=== PATIENT | male | born 1970 | race Caucasian/White ===

== ENCOUNTER 2018-06-15 06:24 | Day surgery (SDC) | payer OTHER ==
--- NOTE | 2018-06-08 11:54 | RAD REPORT ---
EXAM DESCRIPTION: RAD - Chest Pa And Lat (2 Views) - 06/08/2018 11:46 am CLINICAL HISTORY: preop Chest pain. COMPARISON: CHEST PA AND LAT 2 VIEW dated 09/27/2012; CHEST PA AND LAT 2 VIEW dated 02/24/2010; CHEST SINGLE VIEW dated 02/24/2010; CHEST PA AND LAT 2 VIEW dated 09/08/1999 FINDINGS: The lungs are emphysematous but clear. The heart is normal in size. No displaced fractures . IMPRESSION: Mild COPD.
[2018-06-08 12:17] LABS: Absolute Lymphocytes (CBC) 2.7 K/uL (0.7-4.9); Absolute Monocytes 0.7 K/uL (0.1-1.3); Absolute Neutrophil 4.3 K/uL (1.8-8.0); Basophils % 0.5 % (0-1.3); Eosinophils % 2.9 % (0-4.4); Hematocrit 46.2 % (39.6-49.0); Lymphocytes % 33.8 % (15.3-44.8); MPV 8.1 fL (7.6-11.3); Monocytes % 8.8 % (3.3-12.3); RBC Red Blood Cell Count 4.62 M/uL (4.33-5.43)
[2018-06-08 12:19] LABS: BUN Blood Urea Nitrogen 12 mg/dL (7-18); Bicarbonate 32 mmol/L (21-32); Glucose Level 88 mg/dL (74-106); Potassium 4.1 mmol/L (3.5-5.1); Sodium Level 138 mmol/L (136-145)
--- NOTE | 2018-06-14 19:58 | PREOPHP ---
Date of Admission: 06/08/2018 History Of Present Illness: This patient presented to my office with a chief complaint of a painful big toe present on the left foot. Pain is sore and throbbing, moderate in severity, worse with activ ity, improved with rest. The patient has had the calluses trimmed, change of shoe gear, all to no av ail, and requests surgical management. Past Medical History: Unremarkable. Current Medications: Citalopram 40 mg, gabapentin 300 mg and hydrocodone 10 mg. Past Surgical History: Includes herniated disk in the neck, a stomach surgery for scar tissue buildu p as a child. Allergies: NKDA. Social History: The patient is a regular smoker, pack a day, and social beer drinker. The patient d enies recreational drug use. Physical Examination: General: The patient is healthy, well developed, well nourished, well oriented x3. Vascular: Evaluation reveals dorsalis pedis and posterior tibial pulses to be 4/4 bilaterally. Capi llary refill time is 1 second. Temperature gradient is within normal limits. There is no varicositi es or signs of DVT. Musculoskeletal: Evaluation reveals flexible cavus foot type bilaterally with the normal subtalar norman int and normal forefoot position bilaterally. Digits of both feet are noted to be contracted at the PIPJ on the fifth toe with adductovarus deformity. Muscle testing, knee and ankle assessment are all within normal limits. There is no tenderness on the plantar fascia. No soft tissue masses are palp ated. Skin: Evaluation reveals no rash, ulcer, tumor or contracture. There is a hard callus to the latera l nail fold of the fifth toe with increased callus on the medial IPJ of the hallux on the right foot. Neurologic: Evaluation reveals deep tendon reflexes to be 5/5 for the patella and Achilles. Vibrato ry and sharp dull sensation are within normal limits. Paresthesias are, however, present on both fee t. X-ray evaluation of the left foot reveals an adductovarus deformity of the fifth toe with a fused DIP J and widened phalanges of the fifth toe. Diagnoses: Hammertoe deformity, fifth digit, left foot, and osteophyte formation, fifth toe, left fo ot. Plan: Recommended surgeries for an arthroplasty with middle hemiphalangectomy of the fifth toe, left foot. The patient understands risks, benefits, alternatives of the above-mentioned procedure includ ing, but not limited to the risk of infection, pain, numbness, swelling, stiffness, nonhealing of ski n or bone, recurrence of the deformity requiring further surgery. The patient requests to proceed wi th the procedure due to the failure of conservative measures. The patient was counseled on the benef its of smoking cessation and bone healing and skin healing. Preoperative labs have been performed. Medical H and P will be completed by Anesthesia. The patient is scheduled for surgery at [facility] on June 15, 2018. Medical H and P will be completed by Anesthesia. RYAN Voice ID: [id number]
[2018-06-15] MEDS ORDERED: Ringers Lactate 1,000 ML IV ONE (06:40)
[2018-06-15] MEDS ORDERED: LIDOCAINE 1% MPF 5 ML VIAL ONE ×2 (06:58→07:26)
[2018-06-15] MEDS ORDERED: DEXAMETHASONE 4 MG/ML VIAL ONE (07:21)
[2018-06-15] MEDS ORDERED: LIDOCAINE 1% MPF 30 ML VIAL ONE (07:22)
[2018-06-15] MEDS ORDERED: BUPIVACAINE 0.5% PF 10 ML VIAL ONE (07:22)
[2018-06-15] MEDS ORDERED: MIDAZOLAM HCL 2 MG/2 ML INJ ONE (07:25)
[2018-06-15] MEDS ORDERED: PROPOFOL 200 MG/20 ML VIAL IV ONE (07:25)
[2018-06-15] MEDS ORDERED: FENTANYL CITR 100 MCG/2 ML ONE (07:25)
[2018-06-15] MEDS ORDERED: KETOROLAC 30 MG/ML INJ ONE (08:12)
[2018-06-15] MEDS ORDERED: ONDANSETRON 4 MG/2 ML VIAL ONE (08:25)
--- NOTE | 2018-06-15 10:33 | RAD REPORT ---
EXAM DESCRIPTION: RAD - Foot Left 2 View - 06/15/2018 9:20 am CLINICAL HISTORY: Postop foot examination metatarsal head resection COMPARISON: None. FINDINGS: AP and lateral views of the left foot were obtained. A very small plantar spur is present. No acute fracture changes identified. No bone destructive changes are seen. The fifth proximal phala nx head has been resected. No suspicious or unexpected finding. Middle and distal phalanges of the fi fth toe are fused as a normal variant. No destructive bone process. No air or foreign body. IMPRESSION: Postsurgical changes are present involving fifth proximal phalanx. No suspicious or unex pected finding.
--- NOTE | 2018-06-15 19:32 | OP ---
Date of Procedure: 06/15/2018 Surgeon: Hector Mccall DPM Preoperative Diagnosis: Hammertoe deformity, fifth digit, left foot. Postoperative Diagnosis: Hammertoe deformity, fifth digit, left foot. Procedure: Arthroplasty with middle hemiphalangectomy, fifth toe, left foot. Anesthesia: Via local infiltration. Procedure In Detail: The patient was brought into the operating room, placed on the operating table in supine position. Once adequate IV sedation was obtained, the patient was injected with a total of 3 cc of 0.5% Marcaine plain. The patient was prepped and draped in the usual sterile manner and the left extremity was elevated 60 degrees. An Esmarch bandage was applied. Pneumatic ankle tourniquet was inflated to 150 mmHg and the Esmarch was removed. Attention was then directed to the fifth toe where a dorsal linear incision was made overlying the pr oximal phalanx at the PIPJ. The incision was angled distal laterally just to the lateral side of the nail plate. The incision was deepened via sharp and blunt dissection. All neurologic structures we re avoided. All bleeders were clamped and bovied. The extensor digitorum longus tendon was transver sely incised at the level of the PIPJ and reflected proximally. The head of the proximal phalanx was freed utilizing a 15 blade from its medial and lateral collateral ligaments. The head of the fifth proximal phalanx was then resected utilizing a double-action bone cutter. All rough edges were garcía hed utilizing a rasp. The middle phalanx was then approached, which was excessively wide and utilizi ng a 15 blade the lateral half of the middle phalanx was then freed from its soft tissue attachments and removed with a double-action bone cutter. This was carefully removed from the soft tissue. The incision was then freed distally where there was a skin corn present. There was no bony process unde rneath this. However, it was extremely fibrotic and the distal growth was ellipsed at the end of the incision and removed approximately 3 mm in length. All layers were flushed with copious amounts of sterile saline. Extensor digitorum longus tendon was reattached utilizing 0 Vicryl suture. The skin was then reapproximated utilizing 4-0 Prolene horizontal in simple suturing. The toe was seen to be in an excellent rectus alignment. Pneumatic ankle tourniquet was deflated before any bandaging was put on and capillary return was seen to be present in all 5 toes including the fifth toe. This was v isualized by the OR staff including scrub nurse and sock turner. The toe was then dressed with Adapt[employer], dry sterile gauze, dry sterile Maira, and Coban. The patient was sent to recovery room in satisfa ctory condition. DONOVAN/CHARY Voice ID: [id number] Report ID: [id number]
--- NOTE | 2018-06-15 19:35 | DS ---
Date of Discharge: 06/15/2018 Date Of Surgery: 06/15/2018. Surgeon: Hector Mccall DPM. Preoperative Diagnosis: Hammertoe deformity, fifth digit, left foot. Postoperative Diagnosis: Hammertoe deformity, fifth digit, left foot. Procedure: Arthroplasty with middle hemiphalangectomy, fifth digit, left foot. Hospital Course: The patient tolerated the procedure and anesthesia well and was in recovery in sati sfactory condition. The patient will be discharged to home and may ambulate in a postop shoe [facility] and has been given written postop instructions as well as emergency p debi number. The patient will be seen in my office in 1 week for followup care. The patient has harsh n medication. DONOVAN/CHARY Voice ID: [id number] Report ID: [id number]
== END 2018-06-15 09:45 | disposition home or self-care (01) ==
LOC: OR 06:24
PROVIDERS: ATTEND Podiatrist
PROC: 0QBR0ZZ Excision of Left Toe Phalanx, Open Approach (ICD-10-PCS; principal; 2018-06-15 07:30)
DX: M20.42 Other hammer toe(s) (acquired), left foot (principal); I10 Essential (primary) hypertension; K21.9 Gastro-esophageal reflux disease without esophagitis; F41.9 Anxiety disorder, unspecified; F17.210 Nicotine dependence, cigarettes, uncomplicated; Z79.899 Other long term (current) drug therapy
CPT/HCPCS: 36415; 71046; 80048; 85025; J2250; J2405; J2704; J3010

== ENCOUNTER 2018-11-04 11:40 | Emergency (ER) | payer OTHER ==
[2018-11-04] MEDS ORDERED: LIDOCAINE 1% MPF 5 ML VIAL ONE (12:40)
--- NOTE | 2018-11-04 12:56 | ER ---
Nurse's Notes [facility] Name: Carson Slaughter Age: 48 yrs Sex: Male : 1970 Arrival Date: 11/04/2018 Time: 11:41 Bed Treatment Private MD: Anjum Wheeler Diagnosis: Puncture wound of abdominal wall with foreign body without penetration into peritoneal cavity Presentation: 11/04 11:46 Presenting complaint: Patient states: "I went fishing caught a fish and trying to take aj1 it off the hook it flipped n me and I got the fin stuck un my stomach and I couldn't pull it out". Transition of care: patient was not received from another setting of care. Onset of symptoms was November 04, 2018. Risk Assessment: Do you want to hurt yourself or someone else? Patient reports no desire to harm self or others. Initial Sepsis Screen: Does the patient meet any 2 criteria? No. Patient's initial sepsis screen is negative. Does the patient have a suspected source of infection? No. Patient's initial sepsis screen is negative. Care prior to arrival: None. 11:46 Method Of Arrival: Ambulatory aj1 11:46 Acuity: STACY 3 aj1 Triage Assessment: 11:48 General: Appears in no apparent distress. uncomfortable, Behavior is calm, cooperative, aj1 appropriate for age. Pain: Complains of pain in abdomen Pain currently is 7 out of 10 on a pain scale. Neuro: Level of Consciousness is awake, alert, obeys commands. Cardiovascular: Patient's skin is warm and dry. Respiratory: Airway is patent Respiratory effort is even, unlabored, Respiratory pattern is regular, symmetrical. Historical: - Allergies: 11:48 No Known Allergies; aj1 - Home Meds: 11:48 gabapentin 300 mg oral cap 1 cap 3 times per day [Active]; Hydrocodone-Acetaminophen aj1 Oral as needed [Active]; - PMHx: 11:48 neuropathy; aj1 - Immunization history:: Last tetanus immunization: unknown, Flu vaccine is not up to date. - Social history:: Smoking status: Patient uses tobacco products, smokes one pack cigarettes per day. - Ebola Screening: : Patient denies travel to an Ebola-affected area in the 21 days before illness onset. Screenin:31 Abuse screen: Denies threats or abuse. Denies injuries from another. Nutritional hb screening: No deficits noted. Tuberculosis screening: No symptoms or risk factors identified. Fall Risk None identified. Assessment: 12:31 General: Appears in no apparent distress. Behavior is calm, cooperative. Pain: Pain hb currently is 7 out of 10 on a pain scale. Neuro: Level of Consciousness is awake, alert, obeys commands, Oriented to person, place, time, situation. Cardiovascular: Capillary refill < 3 seconds Patient's skin is warm and dry. Respiratory: Airway is patent Respiratory effort is even, unlabored, Respiratory pattern is regular, symmetrical. GI: No signs and/or symptoms were reported involving the gastrointestinal system. : No signs and/or symptoms were reported regarding the genitourinary system. EENT: No signs and/or symptoms were reported regarding the EENT system. Derm: Skin is pink, warm \\T\\ dry. Musculoskeletal: No signs and/or symptoms reported regarding the musculoskeletal system. Vital Signs: 11:48 BP 119 / 82; Pulse 69; Resp 18; Temp 97.0; Pulse Ox 98% on R/A; Weight 113.4 kg (R); aj1 Height 6 ft. 5 in. (195.58 cm) (R); Pain 7/10; 11:48 Body Mass Index 29.65 (113.40 kg, 195.58 cm) aj1 ED Course: 11:41 Patient arrived in ED. mr 11:42 Anjum Wheeler MD is Private Physician. mr 11:43 Cortney Sinha FNP-C is [facility]. kb 11:43 Chalino Galan MD is Attending Physician. kb 11:48 Triage completed. aj1 11:48 Arm band placed on Patient placed in waiting room, Patient notified of wait time. aj1 12:31 Patient has correct armband on for positive identification. Call light in reach. hb 12:31 Patient did not have IV access during this emergency room visit. hb 12:50 Cami Tapia, RN is Primary Nurse. hb 12:52 Abdomen 1 View (KUB) XRAY In Process Unspecified. EDMS 13:13 No provider procedures requiring assistance completed. hb Administered Medications: 12:31 Drug: Lidocaine (1 %) 1 vials {Note: administered by SANTOS Nugent .} Volume: 5 ml; Route: hb Infiltration; 12:51 Follow up: Response: No adverse reaction hb 12:50 Drug: Doxycycline 100 mg Route: PO; hb 13:13 Follow up: Response: Medication administered at discharge. hb 12:58 Drug: Tetanus-Diphtheria Toxoid Adult 0.5 ml {Stained Glass Installer: [employer]. Exp: hb 07/08/2020. Lot #: [id number]. } Route: IM; Site: left deltoid; 13:13 Follow up: Response: No adverse reaction hb Outcome: 12:56 Discharge ordered by . angelita 13:13 Discharged to home ambulatory, with significant other. hb 13:13 Condition: stable 13:13 Discharge instructions given to patient, Instructed on discharge instructions, follow up and referral plans. medication usage, Demonstrated understanding of instructions, follow-up care, medications, wound care, Prescriptions given X 1. 13:15 Patient left the ED. hb Signatures: Dispatcher [employer] EDMS Cortney Sinha, COOK RELIEF-C COOK RELIEF-Meli Amaya RN RN aj Kyung Caldwell Heather, RN RN hb Corrections: (The following items were deleted from the chart) 11:50 11:48 Arm band placed on Patient placed in an exam room, aj aj
--- NOTE | 2018-11-04 12:57 | EDPHYS ---
Physician Documentation [facility] Name: Carson Slaughter Age: 48 yrs Sex: Male : 1970 Arrival Date: 11/04/2018 Time: 11:41 Bed Treatment Private MD: Anjum Wheeler ED Physician Chalino Galan HPI: 11/04 13:10 This 48 yrs old Male presents to ER via Ambulatory with complaints of Fish kb fin in stomach. 13:10 The patient or guardian reports the patient has a suspected foreign body, fishfin. The kb reported likely foreign body is fishfin. Onset: The symptoms/episode began/occurred just prior to arrival. Current symptoms: foreign body sensation, pain. Treatment Prior to Arrival: tried to remove, but couldn't get out. The patient has not experienced similar symptoms in the past. The patient has not recently seen a physician. Pt caught a hardhead and when he was trying to get the hook out it flipped and a fin stuck in abdomen. Historical: - Allergies: 11:48 No Known Allergies; aj1 - Home Meds: 11:48 gabapentin 300 mg oral cap 1 cap 3 times per day [Active]; Hydrocodone-Acetaminophen aj1 Oral as needed [Active]; - PMHx: 11:48 neuropathy; aj1 - Immunization history:: Last tetanus immunization: unknown, Flu vaccine is not up to date. - Social history:: Smoking status: Patient uses tobacco products, smokes one pack cigarettes per day. - Ebola Screening: : Patient denies travel to an Ebola-affected area in the 21 days before illness onset. ROS: 13:08 Constitutional: Negative for fever, chills, and weight loss, Cardiovascular: Negative kb for chest pain, palpitations, and edema, Respiratory: Negative for shortness of breath, cough, wheezing, and pleuritic chest pain, Abdomen/GI: Negative for abdominal pain, nausea, vomiting, diarrhea, and constipation, MS/Extremity: Negative for injury and deformity, Neuro: Negative for headache, weakness, numbness, tingling, and seizure. 13:08 Skin: Positive for of the abdomen, fishfin. Exam: 13:08 Constitutional: This is a well developed, well nourished patient who is awake, alert, kb and in no acute distress. Head/Face: Normocephalic, atraumatic. ENT: Nares patent. No nasal discharge, no septal abnormalities noted. Tympanic membranes are normal and external auditory canals are clear. Oropharynx with no redness, swelling, or masses, exudates, or evidence of obstruction, uvula midline. Mucous membranes moist. Neck: Trachea midline, no thyromegaly or masses palpated, and no cervical lymphadenopathy. Supple, full range of motion without nuchal rigidity, or vertebral point tenderness. No Meningismus. Chest/axilla: Normal chest wall appearance and motion. Nontender with no deformity. No lesions are appreciated. Cardiovascular: Regular rate and rhythm with a normal S1 and S2. No gallops, murmurs, or rubs. Normal PMI, no JVD. No pulse deficits. Respiratory: Lungs have equal breath sounds bilaterally, clear to auscultation and percussion. No rales, rhonchi or wheezes noted. No increased work of breathing, no retractions or nasal flaring. Abdomen/GI: Soft, non-tender, with normal bowel sounds. No distension or tympany. No guarding or rebound. No evidence of tenderness throughout. MS/ Extremity: Pulses equal, no cyanosis. Neurovascular intact. Full, normal range of motion. Neuro: Awake and alert, GCS 15, oriented to person, place, time, and situation. Cranial nerves II-XII grossly intact. Motor strength 5/5 in all extremities. Sensory grossly intact. Cerebellar exam normal. Normal gait. 13:08 Skin: injury, puncture(s), that are superficial, of the abdomen. Vital Signs: 11:48 BP 119 / 82; Pulse 69; Resp 18; Temp 97.0; Pulse Ox 98% on R/A; Weight 113.4 kg (R); aj1 Height 6 ft. 5 in. (195.58 cm) (R); Pain 7/10; 11:48 Body Mass Index 29.65 (113.40 kg, 195.58 cm) aj1 Procedures: 13:06 Foreign Body Removal: fish fin, from the abdomen, by incising to remove, using kb lidocaine 1% without epinephrine to anesthesize the area, Dressing: bandaid, The patient tolerated the removal well. MDM: 12:20 Patient medically screened. 13:06 Data reviewed: vital signs, nurses notes. Data interpreted: Pulse oximetry: on room air kb is 98 %. Interpretation: normal. Counseling: I had a detailed discussion with the patient and/or guardian regarding: the historical points, exam findings, and any diagnostic results supporting the discharge/admit diagnosis, radiology results, the need for outpatient follow up, a family practitioner, to return to the emergency department if symptoms worsen or persist or if there are any questions or concerns that arise at home. 11/04 12:23 Order name: Abdomen 1 View (KUB) XRAY kb Administered Medications: 12:31 Drug: Lidocaine (1 %) 1 vials {Note: administered by SHEEP SORTER Jovanna .} Volume: 5 ml; Route: hb Infiltration; 12:51 Follow up: Response: No adverse reaction hb 12:50 Drug: Doxycycline 100 mg Route: PO; hb 13:13 Follow up: Response: Medication administered at discharge. hb 12:58 Drug: Tetanus-Diphtheria Toxoid Adult 0.5 ml {Rolled Materials Worker: [employer]. Exp: hb 07/08/2020. Lot #: [id number]. } Route: IM; Site: left deltoid; 13:13 Follow up: Response: No adverse reaction Disposition: 18:49 Co-signature as Attending Physician, Chalino Galan MD. Disposition: 11/04/18 12:56 Discharged to Home. Impression: Puncture wound of abdominal wall with foreign body without penetration into peritoneal cavity. - Condition is Stable. - Discharge Instructions: Puncture Wound, Yjag-op-Ulfd, Foreign Body. - Prescriptions for Doxycycline Hyclate 100 mg Oral Tablet - take 1 tablet by ORAL route every 12 hours; 14 tablet. - Medication Reconciliation Form, Thank You Letter, Antibiotic Education, Prescription Opioid Use form. - Follow up: Emergency Department; When: As needed; Reason: Worsening of condition. Follow up: Private Physician; When: 2 - 3 days; Reason: Recheck today's complaints, Continuance of care, Re-evaluation by your physician. Signatures: Dispatcher [employer] Cortney Dominguez FNP-C FNP-Meli Amaya, RN RN aj1 Cami Tapia, MATHIEU RN Chalino Hunt MD MD gs Corrections: (The following items were deleted from the chart) 12:51 12:35 Abdomen 1 View (KUB)+[id number].RAD.[email or web address] ordered. [facility] 13:15 12:56 11/04/2018 12:56 Discharged to Home. Impression: Puncture wound of abdominal wall hb with foreign body without penetration into peritoneal cavity. Condition is Stable. Forms are Medication Reconciliation Form, Thank You Letter, Antibiotic Education, Prescription Opioid Use. Follow up: Emergency Department; When: As needed; Reason: Worsening of condition. Follow up: Private Physician; When: 2 - 3 days; Reason: Recheck today's complaints, Continuance of care, Re-evaluation by your physician. kb
[2018-11-04] MEDS ORDERED: DOXYCYCLINE 100 MG CAP PO ONE (13:01)
--- NOTE | 2018-11-04 13:15 | RAD REPORT ---
EXAM DESCRIPTION: RAD - Abdomen 1 View (KUB) - 11/04/2018 12:51 pm CLINICAL HISTORY: Abdomen pain. FINDINGS: The bowel gas pattern is unremarkable. A 25 millimeter foreign body is present . It extends 7 millimeters into the skin and subcutaneous tis sues
[2018-11-04] MEDS ORDERED: TETANUS & DIPHTHERIA TOX,ADULT 0.5 ML VIAL ONE (13:17)
== END 2018-11-04 13:15 | disposition home or self-care (01) ==
LOC: ER 11:40
PROC: 0JC83ZZ Extirpation of Matter from Abdomen Subcutaneous Tissue and Fascia, Percutaneous Approach (ICD-10-PCS; principal; 2018-11-04)
DX: S31.649A Puncture wound with foreign body of abdominal wall, unspecified quadrant with penetration into peritoneal cavity, initial encounter (principal); Z23 Encounter for immunization; F17.210 Nicotine dependence, cigarettes, uncomplicated
CPT/HCPCS: 74018; 90471; 90714; 99283

== ENCOUNTER 2020-09-16 08:52 | Emergency (ER) | payer OTHER, SELFPAY ==
--- OUTSIDE RECORDS SUMMARY | 2020-09-16 08:54 | XMS REPORT | Continuity of Care Document ---
:1970 Author Organization [facility] t Address [address] [place] [address] Care Team Providers Name Role Phone DR GEOVANNY Attending Clinician Unavailable DR GEOVANNY Admitting Clinician Unavailable Problems Condition Condition Condition Status Onset Resolution Last Treating Co mments Source Name Details Category Date Date Treatment Clinician Date FOOT PAIN Diagnosis Active 2012-07-31 Memoria 3-07 10:52:00 l FOOT 23:15: Deshaun PAIN 00 Active 06/22/2012 [facility] Sprain Of Problem Active 2012-08-15 Me moria The Right 17:32:24 l Foot Sprain Deshaun Of The Right Foot Active 08/15/2012 [facility] Allergies, Adverse Reactions, Alerts Allergy Allergy Status Severity Reaction(s) Onset Inactive Treating Comm ents Source Name Type Date Date Clinician Not Not Active Memoria Known Known l Deshaun Medications Ordered Filled Start Stop Current Ordering Indication Dosage Frequency Signature Comments Components Source Medication Medication Date Date Medication? Clinician (SIG) Name Name No Active Yes No Active Mem oria Medications 4-30 Medication l 17:32: s Deshaun 24 [place] 5/325 Yes Layne 1 tab, PO, Memoria oral tablet 3-08 Tristan Lanan Q4-6H, l 08:37: PRN, 15 Deshaun 26 tab, as needed for pain, Substituti on Allowed, Maintenanc e acetaminoph No Layne 1 tab, Me moria en-hydrocod 3-08 Tristan Lanan Route: PO, l one 325 08:23: Dosing Deshaun mg-5 mg 00 Weight oral tablet 113.636, kg, ONCE, STAT, Start date: 06/23/12 2:23:00, Stop date: 06/23/12 2:23:00 Vital Signs Vital Name Observation Time Observation Value Comments Source Weight 2012-06-23 06:42:00 April Meade Height 2012-06-23 06:42:00 195.58 cm April Meade Procedures Procedure Date / Time Performed Performing Clinician Deandre fuentes Closed reduction of April trinh fracture of foot <sup>1</sup> Encounters Start End Encounter Admission Attending Care Care Encounter Source Date/Time Date/Time Type Type Clinicians Facility Department ID 2019-11-16 2019-11-16 Outpatient [facility] [id number] [facility] 04:45:00 10:37:00 [facility] 2012-08-15 2012-08-15 Outpatient 3 [id number] 12:32:24 12:32:24 Results This patient has no known results.
[2020-09-16 10:47] LABS: Absolute Lymphocytes (CBC) 1.5 K/uL (0.7-4.9); Basophils % 0.6 % (0-1.3); Hematocrit 41.8 % (39.6-49.0); Lymphocytes % 22.2 % (15.3-44.8); MPV 7.9 fL (7.6-11.3); RBC Red Blood Cell Count 4.32 M/uL (4.33-5.43)
--- NOTE | 2020-09-16 10:52 | RAD REPORT ---
EXAM DESCRIPTION: Bryan Single View09/16/2020 10:43 am CLINICAL HISTORY: Shortness of breath COMPARISON: 2019 FINDINGS: Lungs are hyperaerated. The lungs appear clear of acute infiltrate. The heart is normal size IMPRESSION: COPD without visualization acute abnormality
[2020-09-16 11:10] LABS: ALT/SGPT 21 U/L (12-78); AST/SGOT 19 U/L (15-37); Albumin 3.7 g/dL (3.4-5.0); Alkaline Phosphatase 45 U/L (45-117); BUN Blood Urea Nitrogen 4 mg/dL (7-18); Bicarbonate 29 mmol/L (21-32); Bilirubin Direct 0.2 mg/dL (0-0.2); Bilirubin Total 0.6 mg/dL (0.2-1.0); Glucose Level 93 mg/dL (74-106); Magnesium 2.3 mg/dL (1.8-2.4); NT PRO-BNP 54 pg/mL (<125); Protein, Total 7.5 g/dL (6.4-8.2); Sodium Level 139 mmol/L (136-145); Troponin (Emerg Dept Use Only) < 0.02 ng/mL (0.0-0.045)
--- NOTE | 2020-09-16 11:19 | EDPHYS ---
Physician Documentation [facility] Name: Carson Slaughter Age: 49 yrs Sex: Male : 1970 Arrival Date: 09/16/2020 Time: 08:54 Bed 19 Private MD: ED Physician Rashda Hagen HPI: 09/16 10:02 This 49 yrs old Male presents to ER via Ambulatory with complaints of homero Breathing Difficulty. 10:02 The patient has shortness of breath at rest, with light activity. Onset: The homero symptoms/episode began/occurred 3 day(s) ago. Duration: The symptoms are continuous, and are steadily getting worse. The patient's shortness of breath has no apparent modifying factors. Associated signs and symptoms: Pertinent positives: non-productive cough. Severity of symptoms: At their worst the symptoms were moderate in the emergency department the symptoms are unchanged. The patient has not experienced similar symptoms in the past. Historical: - Allergies: :28 No Known Allergies; ph - Home Meds: : gabapentin 300 mg Oral cap 1 cap 3 times per day [Active]; Hydrocodone-Acetaminophen ph Oral as needed [Active]; - PMHx: : neuropathy; ph - Immunization history:: Adult Immunizations unknown. - Social history:: Smoking status: Patient reports the use of cigarette tobacco products, smokes two packs cigarettes per day. ROS: 10:03 Constitutional: Negative for fever, chills, and weight loss, Eyes: Negative for injury, homero pain, redness, and discharge, ENT: Negative for injury, pain, and discharge, Neck: Negative for injury, pain, and swelling, Cardiovascular: Negative for chest pain, palpitations, and edema, Abdomen/GI: Negative for abdominal pain, nausea, vomiting, diarrhea, and constipation, Back: Negative for injury and pain, : Negative for injury, bleeding, discharge, and swelling, MS/Extremity: Negative for injury and deformity, Skin: Negative for injury, rash, and discoloration, Neuro: Negative for headache, weakness, numbness, tingling, and seizure, Psych: Negative for depression, anxiety, suicide ideation, homicidal ideation, and hallucinations, Allergy/Immunology: Negative for hives, rash, and allergies, Endocrine: Negative for neck swelling, polydipsia, polyuria, polyphagia, and marked weight changes, Hematologic/Lymphatic: Negative for swollen nodes, abnormal bleeding, and unusual bruising. 10:03 Respiratory: Positive for cough, shortness of breath, wheezing, inspiratory, expiratory. Exam: 10:03 Constitutional: This is a well developed, well nourished patient who is awake, alert, homero and in no acute distress. Head/Face: Normocephalic, atraumatic. Eyes: Pupils equal round and reactive to light, extra-ocular motions intact. Lids and lashes normal. Conjunctiva and sclera are non-icteric and not injected. Cornea within normal limits. Periorbital areas with no swelling, redness, or edema. ENT: Nares patent. No nasal discharge, no septal abnormalities noted. Tympanic membranes are normal and external auditory canals are clear. Oropharynx with no redness, swelling, or masses, exudates, or evidence of obstruction, uvula midline. Mucous membranes moist. Neck: Trachea midline, no thyromegaly or masses palpated, and no cervical lymphadenopathy. Supple, full range of motion without nuchal rigidity, or vertebral point tenderness. No Meningismus. Chest/axilla: Normal chest wall appearance and motion. Nontender with no deformity. No lesions are appreciated. Cardiovascular: Regular rate and rhythm with a normal S1 and S2. No gallops, murmurs, or rubs. Normal PMI, no JVD. No pulse deficits. Abdomen/GI: Soft, non-tender, with normal bowel sounds. No distension or tympany. No guarding or rebound. No evidence of tenderness throughout. Back: No spinal tenderness. No costovertebral tenderness. Full range of motion. Male : Normal genitalia with no discharge or lesions. Skin: Warm, dry with normal turgor. Normal color with no rashes, no lesions, and no evidence of cellulitis. MS/ Extremity: Pulses equal, no cyanosis. Neurovascular intact. Full, normal range of motion. Neuro: Awake and alert, GCS 15, oriented to person, place, time, and situation. Cranial nerves II-XII grossly intact. Motor strength 5/5 in all extremities. Sensory grossly intact. Cerebellar exam normal. Normal gait. Psych: Awake, alert, with orientation to person, place and time. Behavior, mood, and affect are within normal limits. 10:03 Respiratory: the patient does not display signs of respiratory distress, Respirations: labored breathing, that is mild, Breath sounds: decreased breath sounds, that are moderate, are scattered, rhonchi, wheezing: expiratory Respiratory rate: 18 10:35 ECG was reviewed by the Attending Physician. [facility] Vital Signs: 09:25 BP 114 / 78; Pulse 53; Resp 18; Temp 98.2; Pulse Ox 97% on R/A; ph 10:00 BP 111 / 71; Pulse 51; Resp 20; Pulse Ox 94% ; ph 11:00 BP 120 / 76; Pulse 44; Resp 18; Pulse Ox 96% on R/A; ph 12:07 BP 120 / 81; Pulse 54; Resp 18; Pulse Ox 100% on Nebulizer Mask; ph 13:24 BP 118 / 78; Pulse 52; Resp 18; Pulse Ox 97% on R/A; ph MDM: 09:[address] [facility] 10:05 Differential diagnosis: Bronchitis CHF exacerbation, Chronic Obstructive Pulmonary homero Disease bronchitis, flu, reactive airway, CHF, foreign body, pneumonia, pulmonary edema, Pulmonary Embolism reactive airway disease. Antibiotic administration: Levaquin given. The patient's Wells Deep Vein Thrombosis Score was calculated as follows: Total Score: 0-2 Pts- Low Risk. The patient's pulmonary embolism risk score was calculated as follows: Total Score: 0-2 points. This patient was found to be at low risk for a pulmonary embolism by using the Well's assessment criteria. Immunization status: Influenza vaccine: Data reviewed: vital signs, nurses notes, lab test result(s), EKG, radiologic studies, plain films. Data interpreted: patient monitor: rate is 53 beats/min, rhythm is regular, Pulse oximetry: on. Test interpretation: by ED physician or midlevel provider: ECG, plain radiologic studies. Counseling: I had a detailed discussion with the patient and/or guardian regarding: the historical points, exam findings, and any diagnostic results supporting the discharge/admit diagnosis, lab results, radiology results, the need for outpatient follow up, for definitive care, a family practitioner, a investigations consultant. 09/16 10:02 Order name: Basic Metabolic Panel; Complete Time: 11:17 [facility] 09/16 10:02 Order name: CBC with Diff; Complete Time: 11: [facility] 09/16 10:02 Order name: LFT's; Complete Time: : [facility] 09/16 10:02 Order name: Magnesium; Complete Time: : [facility] 09/16 10:02 Order name: NT PRO-BNP; Complete Time: 11:17 [facility] 09/16 10:02 Order name: Troponin (emerg Dept Use Only); Complete Time: 11:17 [facility] 09/16 10:02 Order name: XRAY Chest (1 view); Complete Time: 11:02 [facility] 09/16 12:16 Order name: COVID-19/FLU A+B EDMS 09/16 10:02 Order name: EKG; Complete Time: 10:03 [facility] 09/16 10:02 Order name: Cardiac monitoring; Complete Time: 10:46 [facility] 09/16 10:02 Order name: EKG - Nurse/Tech; Complete Time: 10:47 [facility] 09/16 10:02 Order name: IV Saline Lock; Complete Time: 10:47 [facility] 09/16 10:02 Order name: Labs collected and sent; Complete Time: 10:47 [facility] 09/16 10:02 Order name: O2 Per Protocol; Complete Time: 10:47 [facility] 09/16 10:02 Order name: O2 Sat Monitoring; Complete Time: 10:47 [facility] EC:35 Rate is 47 beats/min. Rhythm is regular. QRS [place] is Normal. ME interval is normal. QRS homero interval is normal. QT interval is normal. No Q waves. T waves are Normal. No ST changes noted. Clinical impression: Sinus bradycardia and No evidence of ischemia. Interpreted by me. Reviewed by me. Administered Medications: 11:40 Drug: Xopenex (levalbuterol) 3.75 mg Route: Inhalation; ph 12:27 Follow up: Response: No adverse reaction ph 11:40 Drug: AtroVENT (ipratropium) Aerosol 0.5 mg Route: Inhalation; ph 12:27 Follow up: Response: No adverse reaction ph 11:42 Drug: levofloxacin 750 mg Volume: 150 ml; Route: IVPB; Infused Over: 90 mins; Site: ph right antecubital; 13:23 Follow up: Response: No adverse reaction; IV Status: Completed infusion; IV Intake: ph 150ml 11:43 Drug: SOLU-Medrol (methylPrednisoLONE) 125 mg Route: IVP; Site: right antecubital; ph 12:27 Follow up: Response: No adverse reaction ph 11:44 Drug: predniSONE 60 mg Route: PO; ph 12:27 Follow up: Response: No adverse reaction ph 11:44 Drug: Xopenex (levalbuterol) 2.5 mg Route: Inhalation; ph 12:26 Follow up: Response: No adverse reaction ph Disposition: 09/16/20 11:19 Discharged to Home. Impression: Chronic obstructive pulmonary disease with (acute) exacerbation, Hypoxemia, Tobacco use, Tobacco abuse counseling, Bronchitis, not specified as acute or chronic. - Condition is Stable. - Discharge Instructions: Acute Bronchitis, Adult, Chronic Bronchitis, Chronic Obstructive Pulmonary Disease, How to Use an Inhaler, Steps to Quit Smoking, Smoking Hazards, Upper Respiratory Infection, Adult, Upper Respiratory Infection, Adult, [id number]-[id number], Steps to Quit Smoking, Dfcy-cd-Pifd, Cough, Adult, Qrhc-ly-Gwem, Cough, Adult. - Prescriptions for Levaquin 500 mg Oral Tablet - take 1 tablet by ORAL route once daily for 7 days; 7 tablet. Prednisone 20 mg Oral Tablet - take 3 tablet by ORAL route once daily for 5 days; 15 tablet. Albuterol Sulfate 2.5 mg /3 mL (0.083 %) Inhalation Solution for Nebulization - inhale 1 unit by NEBULIZATION route every 8 hours As needed; 1 box. Albuterol Sulfate 90 mcg/actuation - inhale 1-2 puff by INHALATION route every 4-6 hours; 1 Inhaler. - Medication Reconciliation Form, Thank You Letter, Antibiotic Education, Prescription Opioid Use, Family Work Release form. - Follow up: Private Physician; When: 2 - 3 days; Reason: Recheck today's complaints, Continuance of care, Re-evaluation by your physician. Follow up: Himanshu Villafana; When: 2 - 3 days; Reason: Recheck today's complaints, Continuance of care, Re-evaluation by your physician. - Problem is new. - Symptoms have improved. Signatures: Dispatcher [employer] EDMS Rashad Hagen MD MD cha Hall, Patricia RN RN ph Corrections: (The following items were deleted from the chart) 11:16 10:03 CORONAVIRUS+MR.LAB.BRZ ordered. EDMS EDMS 11:17 10:03 Influenza Screen (A \T\ B)+BA.LAB.BRZ ordered. EDMS EDMS 13:25 11:19 09/16/2020 11:19 Discharged to Home. Impression: Chronic obstructive pulmonary ph disease with (acute) exacerbation; Hypoxemia; Tobacco use; Tobacco abuse counseling; Bronchitis, not specified as acute or chronic. Condition is Stable. Discharge Instructions: Acute Bronchitis, Adult, Chronic Bronchitis, Chronic Obstructive Pulmonary Disease, How to Use an Inhaler, Steps to Quit Smoking, Smoking Hazards, Upper Respiratory Infection, Adult, Upper Respiratory Infection, Adult, Yfah-yw-Uxby, Steps to Quit Smoking, Lglu-pg-Zesr, Cough, Adult, Cpnp-yo-Cghg, Cough, Adult. Prescriptions for Levaquin 500 mg Oral Tablet - take 1 tablet by ORAL route once daily for 7 days; 7 tablet, Prednisone 20 mg Oral Tablet - take 3 tablet by ORAL route once daily for 5 days; 15 tablet, Albuterol Sulfate 2.5 mg /3 mL (0.083 %) Inhalation Solution for Nebulization - inhale 1 unit by NEBULIZATION route every 8 hours As needed; 1 box, Albuterol Sulfate 90 mcg/actuation - inhale 1-2 puff by INHALATION route every 4-6 hours; 1 Inhaler. and Forms are Medication Reconciliation Form, Thank You Letter, Antibiotic Education, Prescription Opioid Use. Follow up: Private Physician; When: 2 - 3 days; Reason: Recheck today's complaints, Continuance of care, Re-evaluation by your physician. Follow up: Himanshu Villafana; When: 2 - 3 days; Reason: Recheck today's complaints, Continuance of care, Re-evaluation by your physician. Problem is new. Symptoms have improved. homeor
--- NOTE | 2020-09-16 11:19 | ER ---
Nurse's Notes [facility] Name: Carson Slaughter Age: 49 yrs Sex: Male : 1970 Arrival Date: 09/16/2020 Time: 08:54 Bed 19 Private MD: Diagnosis: Chronic obstructive pulmonary disease with (acute) exacerbation;Hypoxemia;Tobacco use;Tobacco abuse counseling;Bronchitis, not specified as acute or chronic Presentation: 09/16 09:25 Chief complaint: Patient states: SOB x approx 3-4 days, also reports runny nose and ph scratchy throat, denies fever, smokes 2 ppd. Coronavirus screen: Client denies travel out of the [place] in the last 14 days. runny nose, shortness of breath, sore throat, Client presents with at least one sign or symptom that may indicate coronavirus-19. Standard/surgical mask placed on the client. Provider contacted for isolation considerations. Ebola Screen: No symptoms or risks identified at this time. Initial Sepsis Screen: Does the patient meet any 2 criteria? No. Patient's initial sepsis screen is negative. Does the patient have a suspected source of infection? No. Patient's initial sepsis screen is negative. Risk Assessment: Do you want to hurt yourself or someone else? Patient reports no desire to harm self or others. 09:25 Method Of Arrival: Ambulatory ph 09:25 Acuity: STACY 3 ph Historical: - Allergies: :28 No Known Allergies; ph - Home Meds: :28 gabapentin 300 mg Oral cap 1 cap 3 times per day [Active]; Hydrocodone-Acetaminophen ph Oral as needed [Active]; - PMHx: :28 neuropathy; ph - Immunization history:: Adult Immunizations unknown. - Social history:: Smoking status: Patient reports the use of cigarette tobacco products, smokes two packs cigarettes per day. Screenin:29 Abuse screen: Denies threats or abuse. Denies injuries from another. Nutritional ph screening: No deficits noted. Tuberculosis screening: No symptoms or risk factors identified. Fall Risk None identified. Assessment: 09:30 General: Appears in no apparent distress. comfortable, Behavior is calm, cooperative, ph appropriate for age, Denies fever. Pain: Denies pain. Neuro: Level of Consciousness is awake, alert, obeys commands, Oriented to person, place, time, situation. Cardiovascular: Reports shortness of breath, Denies chest pain, Capillary refill < 3 seconds in bilateral fingers Patient's skin is warm and dry. Respiratory: Reports shortness of breath at rest cough that is non-productive, Airway is patent Respiratory effort is even, unlabored, Respiratory pattern is regular, symmetrical. GI: No signs and/or symptoms were reported involving the gastrointestinal system. Derm: Skin is intact, is healthy with good turgor, Skin is pink, warm \T\ dry. Musculoskeletal: Circulation, motion, and sensation intact. Range of motion: intact in all extremities. 12:05 Reassessment: Patient appears in no apparent distress at this time. Patient and/or ph family updated on plan of care and expected duration. Pain level reassessed. Patient is alert, oriented x 3, equal unlabored respirations, skin warm/dry/pink. D/C pending completion of IV antibiotics. 13:24 Reassessment: Patient appears in no apparent distress at this time. Patient and/or ph family updated on plan of care and expected duration. Pain level reassessed. Patient is alert, oriented x 3, equal unlabored respirations, skin warm/dry/pink. Pt d/c home. Vital Signs: 09:25 BP 114 / 78; Pulse 53; Resp 18; Temp 98.2; Pulse Ox 97% on R/A; ph 10:00 BP 111 / 71; Pulse 51; Resp 20; Pulse Ox 94% ; ph 11:00 BP 120 / 76; Pulse 44; Resp 18; Pulse Ox 96% on R/A; ph 12:07 BP 120 / 81; Pulse 54; Resp 18; Pulse Ox 100% on Nebulizer Mask; ph 13:24 BP 118 / 78; Pulse 52; Resp 18; Pulse Ox 97% on R/A; ph Vitals: 12:07 Cardiac Rhythm Assessment Sinus robert. ph ED Course: 08:54 Patient arrived in ED. mr 09:03 Rashad Hagen MD is Attending Physician. homero 09:25 Jackie Mccarthy, MATHIEU is Primary Nurse. ph 09:27 Triage completed. ph 09:28 Arm band placed on Patient placed in an exam room, on pulse oximetry. ph 09:29 Patient has correct armband on for positive identification. Pulse ox on. NIBP on. Door ph closed. Noise minimized. Warm blanket given. 10:25 EKG done, by ED staff, reviewed by Rashad Hagen MD. [facility] 10:28 Initial lab(s) drawn, by la, sent to lab. Inserted saline lock: 20 gauge in right dh3 antecubital area, using aseptic technique. Blood collected. 10:43 XRAY Chest (1 view) In Process Unspecified. EDOR 11:18 Himanshu Villafana MD is Referral Physician. [facility] 13:25 No provider procedures requiring assistance completed. IV discontinued, intact, ph bleeding controlled, No redness/swelling at site. Pressure dressing applied. Administered Medications: 11:40 Drug: Xopenex (levalbuterol) 3.75 mg Route: Inhalation; ph 12:27 Follow up: Response: No adverse reaction ph 11:40 Drug: AtroVENT (ipratropium) Aerosol 0.5 mg Route: Inhalation; ph 12:27 Follow up: Response: No adverse reaction ph 11:42 Drug: levofloxacin 750 mg Volume: 150 ml; Route: IVPB; Infused Over: 90 mins; Site: ph right antecubital; 13:23 Follow up: Response: No adverse reaction; IV Status: Completed infusion; IV Intake: ph 150ml 11:43 Drug: SOLU-Medrol (methylPrednisoLONE) 125 mg Route: IVP; Site: right antecubital; ph 12:27 Follow up: Response: No adverse reaction ph 11:44 Drug: predniSONE 60 mg Route: PO; ph 12:27 Follow up: Response: No adverse reaction ph 11:44 Drug: Xopenex (levalbuterol) 2.5 mg Route: Inhalation; ph 12:26 Follow up: Response: No adverse reaction ph Intake: 13:23 IV: 150ml; Total: 150ml. ph Outcome: 11:19 Discharge ordered by . homero 13:25 Discharged to home ambulatory, with significant other. ph 13:25 Condition: good 13:25 Discharge instructions given to patient, Instructed on discharge instructions, follow up and referral plans. medication usage, Demonstrated understanding of instructions, follow-up care, medications, Prescriptions given X 4. 13:25 Patient left the ED. ph Signatures: Dispatcher [employer] EDMS Rashad Hagen MD MD cha Rivera, Jackie Parham RN RN Marti Patel [facility]
[2020-09-16] MEDS ORDERED: LEVALBUTEROL 1.25 MG/3 ML NEB ONE (11:40)
[2020-09-16] MEDS ORDERED: predniSONE 20 MG TAB ONE (11:40)
[2020-09-16] MEDS ORDERED: METHYLPREDNISOLONE 125 MG INJ ONE (11:40)
[2020-09-16] MEDS ORDERED: Levofloxacin 750mg IV 750 MG/150 ML BAG IV ONE (11:40)
[2020-09-16] MEDS ORDERED: IPRATROPIUM BROM 0.5MG/2.5ML ONE (11:40)
[2020-09-16 12:15] LABS: SARS-COV-2 RT PCR NEGATIVE (NEGATIVE)
[2020-09-16 13:34] VITALS: TEMP 98.2
[2020-09-16 13:40] VITALS: BP 118/78; O2SAT 97
--- NOTE | 2020-09-17 11:59 | EKG ---
Test Date: 2020-09-16 Test Time: 10:18:53 [employer] Professor: LUIS F MEASUREMENT RESULTS: Intervals: Rate: 47 CA: 190 QRSD: 90 QT: 458 QTc: 405 Emmett: P: 69 CA: 190 QRS: -78 T: 68 INTERPRETIVE STATEMENTS: Marked sinus bradycardia Left axis deviation RSR' or QR pattern in V1 suggests right ventricular conduction delay Abnormal ECG Compared to ECG 07/06/2013 09:24:22 Left-axis deviation now present RSR' in V1 or V2 now present Left anterior fascicular block no longer present Electronically Signed On 09-17-20 11:54:10 CDT by Murali Riddle
== END 2020-09-16 13:25 | disposition home or self-care (01) ==
LOC: ER 08:52
DX: J44.1 Chronic obstructive pulmonary disease with (acute) exacerbation (principal); R09.02 Hypoxemia; J40 Bronchitis, not specified as acute or chronic; F17.210 Nicotine dependence, cigarettes, uncomplicated; G62.9 Polyneuropathy, unspecified; Z20.822 Contact with and (suspected) exposure to COVID-19
CPT/HCPCS: 0240U; 36415; 71045; 80048; 80076; 83735; 83880; 84484; 85025; 93005; 96365; 96366; 96375; 99285; J2930; J7512

== ENCOUNTER 2023-02-11 04:16 | Observation (INO) | payer OTHER, SELFPAY ==
--- OUTSIDE RECORDS SUMMARY | 2023-02-11 04:20 | XMS REPORT | Continuity of Care Document ---
:1970 Author Organization [facility] t Address [address] [place] [id number] Care Team Providers Name Role Phone DR MAGALI SMALL Attending Clinician Unavailable DR MAGALI SMALL Admitting Clinician Unavailable Problems Condition Condition Condition Status Onset Resolution Last Treating Co mments Source Name Details Category Date Date Treatment Clinician Date FOOT PAIN FOOT PAIN Diagnosis Active 2012-07-31 Memoria Active 06-22 10:52:00 l 06/22/2012 23:15: Ralph sinha [address] Allergies, Adverse Reactions, Alerts Allergy Allergy Status Severity Reaction(s) Onset Inactive Treating Comm ents Source Name Type Date Date Clinician No Known DA Active [facility] s Medications Ordered Filled Start Stop Current Ordering Indication Dosage Frequency Signature Comments Components Source Medication Medication Date Date Medication? Clinician (SIG) Name Name Balbir 5 Yes Layne 1 tab, PO, Memoria oral tablet 06-23 Tristan Magdaleno Q4-6H, l 08:37: PRN, 15 Deshaun 26 tab, as needed for pain, Substituti on Allowed, Maintenanc e acetaminoph No Layne 1 tab, Me moria en-hydrocod 06-23 Tristan Magdaleno Route: PO, l one 325 08:23: Dosing Deshaun mg-5 mg 00 Weight oral tablet 113.636, kg, ONCE, STAT, Start date: 06/23/12 2:23:00, Stop date: 06/23/12 2:23:00 Vital Signs Vital Name Observation Time Observation Value Comments Source Height 2019-11-16 04:48:00 195.58 CM Weight 2019-11-16 04:48:00 101.6 KG Weight 2019-11-14 15:52:00 102.05 KG Height 2019-11-14 15:52:00 195.58 CM Weight 2012-06-23 06:42:00 April Meade Height 2012-06-23 06:42:00 195.58 cm [facility] Deshaun Procedures Procedure Date / Time Performed Performing Clinician Sourc e DRAINAGE RT GHISLAINESUGEY 2019-11-16 00:00:00 [facility] Closed reduction of April trinh fracture of foot <sup>1</sup> Encounters Start End Encounter Admission Attending Care Care Encounter Source Date/Time Date/Time Type Type Clinicians Facility Department ID 2019-11-16 2019-11-16 Outpatient M[facility] [id number] 04:45:00 10:37:00 MAGALI [facility] 2012-06-23 2012-06-23 [facility] [id number] Memoria 00:28:00 03:14:[address] Deshaun Results This patient has no known results.
[2023-02-11 04:39] LABS: Absolute Lymphocytes (CBC) 2.4 K/uL (0.7-4.9); Hematocrit 47.8 % (39.6-49.0); Lymphocytes % 31.2 % (15.3-44.8); MCV 99.3 fL (80-100); Platelets 181 thou/uL (152-406); RBC Red Blood Cell Count 4.81 M/uL (4.33-5.43)
[2023-02-11 04:43] LABS: Protime INR 0.98
[2023-02-11] MEDS ORDERED: MORPHINE 4 MG/ML SYR ONE (04:55)
[2023-02-11] MEDS ORDERED: ONDANSETRON 4 MG/2 ML VIAL ONE (04:55)
[2023-02-11 05:01] LABS: Troponin High Sensitivity 5.4 pg/mL (<58.9)
--- NOTE | 2023-02-11 06:14 | EDPHYS ---
Physician Documentation [facility] Name: Carson Slaughter Age: 52 yrs Sex: Male : 1970 Arrival Date: 02/11/2023 Time: 04:16 Bed 5 Private MD: ED Physician Zachary Hardy HPI: 02/11 04:54 This 52 yrs old Male presents to ER via Ambulatory with complaints of Chest Pain. rn 04:54 The patient or guardian reports chest pain that is located primarily in the anterior rn chest wall, left. Onset: just prior to arrival. The pain radiates to the left scapula. Associated signs and symptoms: Pertinent positives: diaphoresis, shortness of breath, Pertinent negatives: abdominal pain, headache, lower extremity swelling, near syncope, palpitations, syncope, vomiting. The chest pain is described as aching, sharp. Duration: The patient or guardian reports a single episode, that is still ongoing. Modifying factors: The symptoms are alleviated by nothing. the symptoms are aggravated by deep breath. Severity of pain: At its worst the pain was moderate in the emergency department the pain is unchanged. The patient has not experienced similar symptoms in the past. The patient has not recently seen a physician. Patient reports left-sided chest pain that radiates to the left scapula, worse with deep inspiration, associated with nausea shortness of breath and diaphoresis. Woke him up from sleep. No previous heart problems but has not had a stress test in years. Is active smoker. No history of DVT or PE.. Historical: - Allergies: 04:29 No Known Allergies; bp - Home Meds: 04:29 gabapentin 300 mg Oral cap 1 cap 3 times per day [Active]; Hydrocodone-Acetaminophen bp Oral as needed [Active]; - PMHx: 04:29 neuropathy; bp - Immunization history:: Adult Immunizations unknown. - Social history:: Smoking status: Patient reports the use of cigarette tobacco products, unknown amount. ROS: 04:54 Constitutional: Negative for fever, chills, and weight loss, Neck: Negative for injury, rn pain, and swelling, Cardiovascular: Positive for chest pain Respiratory: Positive for shortness of breath and pleuritic chest pain Abdomen/GI: Negative for abdominal pain, nausea, vomiting, diarrhea, and constipation, Back: Negative for injury and pain, MS/Extremity: Negative for injury and deformity, Skin: Negative for injury, rash, and discoloration, Neuro: Negative for headache, weakness, numbness, tingling, and seizure, Exam: 04:42 ECG was reviewed by the Attending Physician. rn 04:54 Constitutional: This is a well developed, well nourished patient who is awake, alert, rn and in no acute distress. Head/Face: Normocephalic, atraumatic. Cardiovascular: Bradycardic, regular rhythm. No pulse deficits. Respiratory: No increased work of breathing, no retractions or nasal flaring. Abdomen/GI: Soft, non-tender Skin: Warm, dry with normal turgor. Normal color with no rashes, no lesions, and no evidence of cellulitis. MS/ Extremity: Pulses equal, no cyanosis. Neurovascular intact. Equal circumference Neuro: Awake and alert, GCS 15 Vital Signs: 04:28 BP 145 / 88; Pulse 51; Resp 16; Temp 98; Pulse Ox 97% ; Weight 99.79 kg; Height 6 ft. 5 bp in. ; 04:30 BP 153 / 80; Pulse 56; Resp 18; Pulse Ox 99% on R/A; km8 05:00 BP 126 / 76; Pulse 44; Resp 14 S; Pulse Ox 97% on R/A; km8 05:31 BP 126 / 87; Pulse 44; Resp 14 S; Pulse Ox 98% on R/A; Pain 6/10; km8 06:00 BP 130 / 76; Pulse 43; Resp 16 S; Pulse Ox 100% on R/A; km8 06:30 BP 133 / 89; Pulse 43; Resp 16 S; Pulse Ox 98% on R/A; km8 04:28 Body Mass Index 26.09 (99.79 kg, 195.58 cm) bp 05:31 Pain Scale: Adult km8 MDM: 04:24 Patient medically screened. rn 05:54 HEART Score: History: Moderately Suspicious (1), ECG: Non specific repolarization rn disturbance / LBTB / PM (1), Age: > 45 and < 65 years (1), Risk Factors: 1 or 2 risk factors (1), Troponin: < or = 1 x Normal Limit (0), Total Score = 4. Data reviewed: vital signs, nurses notes, lab test result(s), EKG. Independent interpretation of the following test(s) in the Emergency Department EKG: See my EKG interpretation above X-Ray: My interpretation is Chest x-ray images negative for pneumothorax.. 06:12 Differential diagnosis: acute myocardial infarction, acute pericarditis, anxiety, rn coronary artery disease chest wall pain, costochondritis, esophagitis, gastritis, gastroesophageal reflux disease (GERD), pleurisy, pneumonia, pneumothorax, pulmonary embolus, stable angina, unstable angina. The patient was given aspirin in the Emergency Department. Care significantly affected by the following chronic conditions: Chronic Obstructive Pulmonary Disease. Counseling: I had a detailed discussion with the patient and/or guardian regarding the historical points, exam findings, and any diagnostic results supporting the discharge/admit diagnosis, lab results, radiology results, the need for further work-up and treatment in the hospital. 02/11 04:24 Order name: Basic Metabolic Panel; Complete Time: 05:09 02/11 04:24 Order name: CBC with Diff; Complete Time: 05:09 02/11 04:24 Order name: NT PRO-BNP; Complete Time: 05:09 02/11 04:24 Order name: PT-INR; Complete Time: 05:09 02/11 04:24 Order name: Troponin HS; Complete Time: 05:09 02/11 08:28 Order name: Troponin High Sensitivity [facility] 02/11 08:28 Order name: Lipid Profile [facility] 02/11 04:24 Order name: XRAY Chest (1 view) 02/11 04:35 Order name: CT Chest For PE Angio 02/11 04:24 Order name: EKG; Complete Time: 04:25 02/11 04:24 Order name: Cardiac monitoring; Complete Time: 04:37 02/11 04:24 Order name: EKG - Nurse/Tech; Complete Time: 04:45 02/11 04:24 Order name: IV Saline Lock; Complete Time: 04:36 02/11 04:24 Order name: Labs collected and sent; Complete Time: 04:36 02/11 04:24 Order name: O2 Per Protocol; Complete Time: 04:37 02/11 04:24 Order name: O2 Sat Monitoring; Complete Time: 04:37 rn EC:42 Rate is 49 beats/min. Rhythm is regular. Left axis deviation noted. QRS is positive in rn lead I and negative in lead aVF. HI interval is normal. QRS interval is normal. QT interval is normal. No Q waves. T waves are Normal. No ST changes noted. Clinical impression: Sinus bradycardia. Interpreted by me. Reviewed by me. Administered Medications: 04:45 Drug: morphine IVP or IV 4 mg IVP once over 4 mins Route: IVP; Infused Over: 4 mins; pf1 Site: right antecubital; 05:15 Follow up: Response: No adverse reaction; Pain is decreased; RASS: Alert and Calm (0) km8 04:45 Drug: Ondansetron IVP 4 mg IVP once; over 2 minutes Route: IVP; Site: right antecubital;pf1 05:16 Follow up: Response: No adverse reaction pf1 06:22 Drug: Aspirin PO Chewable Tablet 324 mg PO once; 81 mg tablets x 4 Route: PO; km8 06:45 Follow up: Response: No adverse reaction km8 Disposition Summary: 02/11/23 06:13 Hospitalization Ordered Notes: Hospitalization Status: Observation rn Provider: Robert Hardy rn Condition: Stable rn Problem: new rn Symptoms: have improved rn Bed/Room Type: Standard rn Location: Telemetry/MedSurg (observation)(02/11/23 10:55) eb Room Assignment: [facility](02/11/23 10:55) eb Diagnosis - Chest pain, unspecified rn Forms: - Medication Reconciliation Form rn - SBAR form rn - Leadership Thank You Letter rn Signatures: Dispatcher [employer] EDMS Zachary Hardy MD MD rn Peltier, Brian RN RN Keiko Jose Kelly RN RN kb3 Betty Burns RN RN pf1 Nayana Garvey RN RN km8 Corrections: (The following items were deleted from the chart) 08:01 06:13 Telemetry/MedSurg (observation) rn kb3 08:01 06:13 rn kb3 10:55 08:01 [facility] ER HOLD kb3 eb 10:55 08:01 ERHOLD- kb3 eb
--- NOTE | 2023-02-11 06:14 | ER ---
Nurse's Notes [facility] Name: Carson Slaughter Age: 52 yrs Sex: Male : 1970 Arrival Date: 02/11/2023 Time: 04:16 Bed 5 Private MD: Diagnosis: Chest pain, unspecified Presentation: 02/11 04:28 Chief complaint: Patient states: LEFT SIDED CRUSHING CHEST PAIN TO LEFT SHOULDER. bp Coronavirus screen: At this time, the client does not indicate any symptoms associated with coronavirus-19. Ebola Screen: No symptoms or risks identified at this time. Initial Sepsis Screen: Does the patient meet any 2 criteria? No. Patient's initial sepsis screen is negative. Does the patient have a suspected source of infection? No. Patient's initial sepsis screen is negative. Risk Assessment: Do you want to hurt yourself or someone else? Patient reports no desire to harm self or others. Onset of symptoms was February 11, 2023 at 04:00. 04:28 Method Of Arrival: Ambulatory bp 04:28 Acuity: STACY 3 bp Triage Assessment: 04:29 General: Appears uncomfortable, Behavior is calm, cooperative, appropriate for age. bp Pain: Complains of pain in chest. Cardiovascular: Reports chest pain. Historical: - Allergies: 04:29 No Known Allergies; bp - Home Meds: 04:29 gabapentin 300 mg Oral cap 1 cap 3 times per day [Active]; Hydrocodone-Acetaminophen bp Oral as needed [Active]; - PMHx: 04:29 neuropathy; bp - Immunization history:: Adult Immunizations unknown. - Social history:: Smoking status: Patient reports the use of cigarette tobacco products, unknown amount. Screenin:30 [facility] ED Fall Risk Assessment (Adult) History of falling in the last 3 months, km8 including since admission No falls in past 3 months (0 pts) Confusion or Disorientation No (0 pts) Intoxicated or Sedated No (0 pts) Impaired Gait No (0 pts) Mobility Assist Device Used No (0 pt) Altered Elimination No (0 pt) Score/Fall Risk Level 0 - 2 = Low Risk Oriented to surroundings, Maintained a safe environment, Educated pt \T\ family on fall prevention, incl call for assistance when getting out of bed, Assessed \T\ reinforced patient's understanding of fall precautions. Abuse screen: Denies threats or abuse. Denies injuries from another. Nutritional screening: No deficits noted. Tuberculosis screening: No symptoms or risk factors identified. Assessment: 04:30 General: Appears in no apparent distress. Behavior is calm, cooperative, appropriate km8 for age. Pain: Complains of pain in anterior aspect of left upper chest Pain radiates to left shoulder Pain currently is 9 out of 10 on a pain scale. Quality of pain is described as crushing, Pain began suddenly, 30 min ago. Aggravated by deep breathing. Neuro: No deficits noted. Mata Agitation-Sedation Scale (RASS): 0 - Alert and Calm Level of Consciousness is awake, alert, obeys commands, Oriented to person, place, time, situation. Cardiovascular: Reports chest pain, shortness of breath, Capillary refill < 3 seconds Patient's skin is warm and dry. Rhythm is sinus bradycardia Chest pain is described as Pain is 9 out of 10 on a pain scale. quality is crushing, is located in left anterior radiates to left scapula began suddenly, 30 minutes prior to arrival is aggravated by breathing. Respiratory: Reports shortness of breath pain with respiration Airway is patent Respiratory effort is even, unlabored, Respiratory pattern is regular, symmetrical. GI: No deficits noted. No signs and/or symptoms were reported involving the gastrointestinal system. Patient currently denies nausea, vomiting. : No deficits noted. No signs and/or symptoms were reported regarding the genitourinary system. EENT: No deficits noted. No signs and/or symptoms were reported regarding the EENT system. Derm: No deficits noted. No signs and/or symptoms reported regarding the dermatologic system. Skin is intact, is healthy with good turgor, Skin is dry, Skin is normal, Skin temperature is warm. Musculoskeletal: No deficits noted. No signs and/or symptoms reported regarding the musculoskeletal system. Circulation, motion, and sensation intact. Range of motion: intact in all extremities. 05:33 Reassessment: Patient appears in no apparent distress at this time. No changes from km8 previously documented assessment. Patient and/or family updated on plan of care and expected duration. Pain level reassessed. Patient is alert, oriented x 3, equal unlabored respirations, skin warm/dry/pink. Patient states symptoms have improved. 06:45 Reassessment: Patient appears in no apparent distress at this time. No changes from km8 previously documented assessment. Patient and/or family updated on plan of care and expected duration. Pain level reassessed. Patient is alert, oriented x 3, equal unlabored respirations, skin warm/dry/pink. Vital Signs: 04:28 BP 145 / 88; Pulse 51; Resp 16; Temp 98; Pulse Ox 97% ; Weight 99.79 kg; Height 6 ft. 5 bp in. ; 04:30 BP 153 / 80; Pulse 56; Resp 18; Pulse Ox 99% on R/A; km8 05:00 BP 126 / 76; Pulse 44; Resp 14 S; Pulse Ox 97% on R/A; km8 05:31 BP 126 / 87; Pulse 44; Resp 14 S; Pulse Ox 98% on R/A; Pain 6/10; km8 06:00 BP 130 / 76; Pulse 43; Resp 16 S; Pulse Ox 100% on R/A; km8 06:30 BP 133 / 89; Pulse 43; Resp 16 S; Pulse Ox 98% on R/A; km8 04:28 Body Mass Index 26.09 (99.79 kg, 195.58 cm) bp 05:31 Pain Scale: Adult [facility] ED Course: 04:20 Patient arrived in ED. gm2 04:24 Zachary Hardy MD is Attending Physician. rn 04:26 Nayana Garvey RN is Primary Nurse. km8 04:29 Triage completed. bp 04:29 Arm band placed on. bp 04:30 Patient has correct armband on for positive identification. Placed in gown. Bed in low km8 position. Call light in reach. Side rails up X 1. Client placed on continuous cardiac and pulse oximetry monitoring. NIBP monitoring applied. adolescent coordinator on. 04:30 Inserted saline lock: 20 gauge in right antecubital area, using aseptic technique. km8 Blood collected. Patient maintains SpO2 saturation greater than 95% on room air. 04:37 Basic Metabolic Panel Sent. km8 04:37 CBC with Diff Sent. km8 04:37 NT PRO-BNP Sent. km8 04:37 PT-INR Sent. km8 04:37 Troponin HS Sent. km8 04:48 XRAY Chest (1 view) In Process Unspecified. EDMS 05:38 CT Chest For PE Angio In Process Unspecified. EDMS 06:13 Robert Hardy MD is Hospitalizing Provider. rn 07:01 Report given to MATHIEU SAVAGE. km8 Administered Medications: 04:45 Drug: morphine IVP or IV 4 mg IVP once over 4 mins Route: IVP; Infused Over: 4 mins; pf1 Site: right antecubital; 05:15 Follow up: Response: No adverse reaction; Pain is decreased; RASS: Alert and Calm (0) km8 04:45 Drug: Ondansetron IVP 4 mg IVP once; over 2 minutes Route: IVP; Site: right antecubital;pf1 05:16 Follow up: Response: No adverse reaction pf1 06:22 Drug: Aspirin PO Chewable Tablet 324 mg PO once; 81 mg tablets x 4 Route: PO; km8 06:45 Follow up: Response: No adverse reaction km8 Outcome: 06:13 Decision to Hospitalize by Provider. rn 12:14 Patient left the ED. ph Signatures: Dispatcher [employer] EDMS Zachary Hardy MD MD rn Hall, Patricia, RN RN ph Peltier, Brian, RN RN bp Finley, Pamala, RN RN pf1 Deanne Gonzalez gm2 Nayana Garvey RN RN km8 Corrections: (The following items were deleted from the chart) 04:36 04:30 Pain: Complains of pain in anterior aspect of left upper chest Pain radiates to km8 left shoulder km8 04:36 04:30 Cardiovascular: Reports chest pain, shortness of breath, Capillary refill < 3 km8 seconds Patient's skin is warm and dry. Rhythm is sinus bradycardia Chest pain km8 05:39 05:33 Reassessment: Patient appears in no apparent distress at this time. No changes km8 from previously documented assessment. Patient and/or family updated on plan of care and expected duration. Pain level reassessed. Patient is alert, oriented x 3, equal unlabored respirations, skin warm/dry/pink. km8
[2023-02-11] MEDS ORDERED: ASPIRIN 81 MG CHEWABLE TABLET ONE (06:28)
[2023-02-11] MEDS ORDERED: MORPHINE 4 MG/ML SYR IV PRN (06:55)
[2023-02-11] MEDS ORDERED: ACETAMINOPHEN 500 MG TAB PO PRN (06:55)
[2023-02-11] MEDS ORDERED: ASPIRIN 325 MG TAB PO ONE (06:55)
[2023-02-11] MEDS ORDERED: NITROGLYCERIN 0.4 MG/TAB SL PRN (06:55)
--- NOTE | 2023-02-11 07:18 | P.HP ---
Certification for Inpatient Patient admitted to: Observation With expected LOS: <2 Midnights Practitioner: I am a practitioner with admitting privileges, knowledge of patient current condition, hospital course, and medical plan of care. Services: Services provided to patient in accordance with Admission requirements found in Title 42 Section 412.3 of the Code of Federal Regulations Patient History Date of Service: 02/11/23 Reason for admission: Chest Pain History of Present Illness: Mr. Slaughter 52 yr old male with history of COPD, Neuropathy presents to ER via Ambulatory with complaints of Chest Pain. The patient or guardian reports chest pain that is located primarily in the anterior rnid chest wall, left. Onset: just prior to arrival. The pain radiates to the left scapula. Associated signs and symptoms includes Pertinent positives: diaphoresis, shortness of breath, Pertinent negatives: abdominal pain, headache, lower extremity swelling, near syncope, palpitations, syncope, vomiting. The chest pain is described as aching, sharp. The patient or guardian reports a single episode, that is still ongoing. The symptoms are alleviated by nothing. the symptoms are aggravated by deep breath. Severity of pain 8/10. At its worst the pain was moderate in the emergency department the pain is unchanged. The patient has not experienced similar symptoms in the past. The patient has not recently seen a physician. Patient reports left-sided chest pain that radiates to the left scapula, worse with deep inspiration, associated with nausea shortness of breath and diaphoresis. Woke him up from sleep. No previous heart problems but has not had a stress test in years. Is active smoker. No history of DVT or PE. ED course: Vitals normal, 12 lead EKG showing Sinus Bradycardia with, regular rhythm, Left axis deviation,no Q waves, No ST changes. Initial labs and Tropi [place]. Patient was given Morphine and Zophran Admitting the patient with the diagnosis of Chest Pain, Unspecified. Allergies No Known Allergies Allergy (Verified 06/08/18 11:20) Home medications list reviewed: Yes Home Medications: Citalopram Hydrobromide [Celexa] 1 tab PO DAILY 04/23/16 Gabapentin 1 tab PO TID 04/23/16 Hydrocodone 10/APAP 325 [[place] 10/325*] 1 tab PO PRN 04/23/16 Pantoprazole [Protonix Tab*] 1 tab PO DAILY 04/23/16 Amlodipine Besylate 10 mg PO [id number] 06/08/18 Aspirin [Aspirin EC 81 MG] 81 mg PO DAILY 06/08/18 - Past Medical/Surgical History Has patient received pneumonia vaccine in the past: No Diabetic: No -: COPD -: Neuropathy -: Smoker -: ETOH - Social History Smoking Status: Heavy Tobacco smoker (>10 cigarettes/day) Counseled patient to stop smoking for: more than 10 minutes Smoking therapy provided: Yes Patient receptive to therapy: Yes Alcohol use: Yes CD- Drugs: No Caffeine use: Yes Review of Systems 10-point ROS is otherwise unremarkable Physical Examination - Physical Exam General: Alert, Oriented x3 HEENT: Atraumatic Neck: 2+ carotid pulse no bruit Respiratory: Clear to auscultation bilaterally, Normal air movement Cardiovascular: No edema, Normal pulses, Regular rate/rhythm, Normal S1 S2 Capillary refill: <2 Seconds Gastrointestinal: Normal bowel sounds, Hypoactive, Soft and benign Musculoskeletal: No clubbing, No swelling Integumentary: No rashes, No breakdown Neurological: Normal gait, Normal speech, Normal tone - Studies Laboratory Data (last 24 hrs) 02/11/23 02/11/23 02/11/23 04:30 04:30 04:30 WBC 7.80 Hgb 17.2 Hct 47.8 Plt Count 181 PT 10.8 INR 0.98 Sodium 134 L Potassium 4.0 BUN 7 Creatinine 0.89 Glucose 100 Assessment and Plan - Plan Assessment and Plan Chest Pain, Unspecified: COPD Hypertension Cigarette Smoker ETOH Neuropathy Chest Pain, Unspecified: * Acute, concern for Acute Coronary Syndrome (Non-ST Segment Elevation Myocardial Infarction) * Based on history and physical examination, cannot exclude ischemia as a possible etiology of chest pain. Other differential diagnoses include, but are not limited to, pulmonary embolism, pericarditis, myocarditis, gastroesophageal reflux disease, gastritis/esophagitis, esophageal spasms, pneumonia, pleuritic chest pain, and musculoskeletal chest pain (i.e. costochondritis). * Evaluation thus far: - EKG: No obvious ST segment changes, trend - Serial troponin - Ordered chest x-ray - Ordered d-dimer - Management plan: - Consult Cardiology -Dr. Martínez. recommendations appreciated - S/P aspirin 324 mg PO x 1 in ED - Start daily baby aspirin -Start statins - Symptom control with PRN acetaminophen, nitroglycerin, morphine - If CAD is confirmed, plan to start beta-girma, POPPY-inhibitor/ARB, statin with 24 hours -NPO for possible cath -Echo Ordered COPD * Chronic, controlled - Physical exam = no wheezing, denies shortness of breath -No recent COPD exacerbations - Chest x-ray = no acute abnormalities - Plan: -Albuterol q4-6hr as needed -Can resume home inhalers - Supplemental oxygen to maintain SpO2 > 92% Hypertension * Current chronic controlled on amlodipine 10 mg p.o. daily at home * Resume the home medications continue to monitor blood pressure closely * DASH diet Neuropathy * Chronic, controlled on gabapentin 600 p.o. 3 times daily * We will resume the home medications Cigarette Smoker -chronic,current every day heavy smoker. 2 ppd for 30 years -Smoking cessation discussed -Patient wants to quit ETOH -chronic, current daily alcohol use -Discussed about moderate use of alcohol Code status: full code Diet: NPO DVT Prohylaxis: Lovenox. - Discharge Plan: Home Plan to discharge in: 24 Hours - Advance Directives Does patient have a Living Will: No Does patient have a Durable POA for Healthcare: No - Code Status/Comfort Care Code Status Assessed: Yes (FULL CODE) Code Status: Full Code Physician Review: Patient Assessed, Agree with Above Assessment and Plan Critical Care: No Time Spent Managing Pts Care (In Minutes): 55 (MINUTES)
[2023-02-11 08:28] LABS: Troponin High Sensitivity 5.9 pg/mL (<58.9)
[2023-02-11 08:37] VITALS: BMI 26.1
[2023-02-11] MEDS: lisinopriL 10 MG TAB PO SCH (09:00)
[2023-02-11] MEDS: ENOXAPARIN 40 MG/0.4 ML SQ SCH (09:00)
[2023-02-11] MEDS: NA CHLORIDE 0.9% 1,000 ML IV SCH ×2 (10:00→13:23)
[2023-02-11] MEDS ORDERED: lisinopriL 10 MG TAB ONE (10:50)
[2023-02-11] MEDS ORDERED: ASPIRIN 325 MG TAB ONE (10:50)
[2023-02-11] MEDS ORDERED: NA CHLORIDE 0.9% 1,000 ML ONE (10:51)
[2023-02-11] MEDS ORDERED: ENOXAPARIN 40 MG/0.4 ML SQ ONE (10:51)
[2023-02-11] MEDS: GABAPENTIN 300 MG CAP PO SCH ×2 (13:18→20:42)
--- NOTE | 2023-02-11 14:44 | RAD REPORT ---
EXAM DESCRIPTION: Chest For Pe Angio CLINICAL HISTORY: CHEST PAIN COMPARISON: None Available. TECHNIQUE: CTA of the chest obtained following the uncomplicated intravenous administration of iodin ated contrast. 3-D/MIP reformatted images of the chest available for evaluation. This exam was perfor med according to our departmental dose-optimization program, which includes automated exposure contro l, adjustment of the mA and/or kV according to patient size and/or use of iterative reconstruction te [place]nique. FINDINGS: Chest: Pulmonary arteries: Contrast bolus is adequate.No filling defects identified in the pulmonary arterie s to suggest pulmonary embolus. Thyroid: No abnormalities of the visualized thyroid. Great Vessels: Great vessels have normal anatomic configuration. Thoracic Aorta: No abnormalities of the thoracic aorta identified. Heart: No cardiomegaly, significant pericardial effusion, or coronary artery atherosclerosis Lymph Nodes: No enlarged mediastinal lymph nodes identified. Esophagus: No abnormalities of the esophagus identified. Other: No additional findings. Lungs: Paraseptal and centrilobular emphysematous change. No confluent airspace consolidation. Minima l dependent opacities. Pleura: No pleural effusion or pneumothorax. Trachea/Airways: No abnormalities of the visualized trachea or airways. Bones multilevel endplate spondylosis and facet arthropathy.:No destructive osseous lesions. Upper Abdomen: Limited images of the upper abdomen demonstrate no definite abnormalities of visualize d portions of the liver, gallbladder, pancreas, spleen, adrenal glands, or kidneys. IMPRESSION: 1. No pulmonary embolus. 2. Centrilobular and paraseptal emphysematous change. Electronically signed by: Deniz Mann 02/11/2023 6:02 AM CDT Due to temporary technical issues with the PACS/Fluency reporting system, reports are being signed by the in house radiologists without review as a courtesy to insure prompt reporting. The interpreting radiologist is fully responsible for the content of the report.
--- NOTE | 2023-02-11 15:42 | EKG ---
Test Date: 2023-02-11 Test Time: 04:38:04 Corporate Compliance Manager: AVRIL MEASUREMENT RESULTS: Intervals: Rate: 49 VA: 190 QRSD: 98 QT: 432 QTc: 390 [place]: P: 61 VA: 190 QRS: -72 T: 68 INTERPRETIVE STATEMENTS: Marked sinus bradycardia Left anterior fascicular block ST abnormality, possible digitalis effect Abnormal ECG Compared to ECG 09/16/2020 10:18:53 Left anterior fascicular block now present ST (T wave) deviation now present Left-axis deviation no longer present Electronically Signed On 02-11-23 15:40:57 CDT by Varun Martínez
--- NOTE | 2023-02-11 19:53 | RAD REPORT ---
EXAM DESCRIPTION: Chest Single View CLINICAL HISTORY: 52 years Male CHEST PAIN COMPARISON: None FINDINGS: Lung volumes adequate. Cardiac silhouette is normal in size. No pneumothorax. No large pleural effusion. No focal consolidation. No acute bony finding. IMPRESSION: No acute cardiopulmonary findings. Electronically signed by: Amy Navarro MD 02/11/2023 5:00 AM CDT Due to temporary technical issues with the PACS/Fluency reporting system, reports are being signed by the in house radiologists without review as a courtesy to insure prompt reporting. The interpreting radiologist is fully responsible for the content of the report.
--- NOTE | 2023-02-11 20:10 | CON ---
Date of Consultation: 02/11/2023 Reason For Consultation: Chest pain. History Of Present Illness: A 52-year-old male with history of COPD and peripheral neuropathy, prese nted with chest pain. It is in the mid chest on the left side and radiates between the shoulders. N o diaphoresis or shortness of breath and pain was reported to be severe 8/10 and now pain has improve d significantly. Past Medical History: As outlined above in the HPI. Medications: Refer consultation sheet for detailed list. Allergies: NO KNOWN DRUG ALLERGIES. Family History: No mature coronary artery disease. Social History: Heavy smoker daily. Does not drink or use any drugs. Review of Systems: All systems reviewed are negative except as mentioned in HPI. Physical Examination: Vital Signs: Reviewed. Head and Neck: Pupils are equal, reactive to light. Intact eye movements. No JVD. No cervical lym phadenopathy. Neck is supple. Thyroid is not enlarged. Lungs: Clear to auscultation bilaterally. No rhonchi, wheezing, or crackles. No accessory muscle u se. Heart: Regular rate and rhythm. No extra sounds. Abdomen: Soft, nontender. Bowel sounds positive. No organomegaly. No masses or hernia. No rigidi ty or rebound. Extremities: No edema, clubbing, or cyanosis. Intact pulses. Skin: No rash. Neurologic: Alert, awake, oriented x3. No acute focal deficits appreciated. Investigations: Troponins x3 are negative. BUN 7, creatinine 0.89 and hemoglobin is 17.2. Assessment And Recommendations: 1.Chest pain. Cardiac enzymes x3 are negative. Patient has risk factor. Patient will need a stres s test. If chest pain becomes completely under control and given the fact that his cardiac enzymes a re negative, patient can be monitored overnight and probably discharged tomorrow and follow up as an outpatient for exercise stress test. Patient had an echo today that was entirely normal. Continue b galina aspirin and statin. 2.Dyslipidemia. Continue Lipitor. 3.Hypertension. Blood pressure is controlled. Continue current management. SR/MODL Voice ID: [id number] Report ID: [id number]
[2023-02-11] MEDS ORDERED: ATORVASTATIN 40 MG TAB PO SCH (21:00)
[2023-02-11 22:07] VITALS: O2SAT 99
[2023-02-12 06:44] LABS: Absolute Lymphocytes (CBC) 1.8 K/uL (0.7-4.9); MCV 100.6 fL (80-100); MPV 7.8 fL (7.6-11.3); Platelets 161 thou/uL (152-406); RBC Red Blood Cell Count 4.37 M/uL (4.33-5.43)
[2023-02-12 07:03] LABS: Troponin High Sensitivity 6.3 pg/mL (<58.9)
--- NOTE | 2023-02-12 07:15 | P.DS ---
Admission Date: 02/11/23 Discharge Date: 02/12/23 Disposition: ROUTINE DISCHARGE Discharge Condition: GOOD Reason for Admission: Chest Pain Brief History of Present Illness: Mr. Slaughter 52 yr old male with history of COPD, Neuropathy presents to ER via Ambulatory with complaints of Chest Pain. The patient or guardian reports chest pain that is located primarily in the anterior rnid chest wall, left. Onset: just prior to arrival. The pain radiates to the left scapula. Associated signs and symptoms includes Pertinent positives: diaphoresis, shortness of breath, Pertinent negatives: abdominal pain, headache, lower extremity swelling, near syncope, palpitations, syncope, vomiting. The chest pain is described as aching, sharp. The patient or guardian reports a single episode, that is still ongoing. The symptoms are alleviated by nothing. the symptoms are aggravated by deep breath. Severity of pain 8/10. At its worst the pain was moderate in the emergency department the pain is unchanged. The patient has not experienced similar symptoms in the past. The patient has not recently seen a physician. Patient reports left-sided chest pain that radiates to the left scapula, worse with deep inspiration, associated with nausea shortness of breath and diaphoresis. Woke him up from sleep. No previous heart problems but has not had a stress test in years. Is active smoker. No history of DVT or PE. ED course: Vitals normal, 12 lead EKG showing Sinus Bradycardia with, regular rhythm, Left axis deviation,no Q waves, No ST changes. Initial labs and T[place]i [place]. Patient was given Morphine and Zophran Admitting the patient with the diagnosis of Chest Pain, Unspecified. Hospital Course: Sukhjinder, a 52-year-old male with a history of COPD and peripheral neuropathy presented to the emergency room with chest pain. Pain is mid sternal chest pain radiating to the left side between the shoulders. No diaphoresis or shortness of breath and the pain reported to be severe. Pain has improved after the medications in the hospital. Initial cardiac enzymes, and repeated 3 times are negative. Echocardiogram done in the hospital is also normal. Patient was started on aspirin, nitroglycerin as needed, morphine as needed, lisinopril, and referred to wellness consultant. [employer] recommends stress test outpatient. Patient will need a outpatient stress test and patient will continue baby aspirin and atorvastatin at home as per the wellness consultant recommendations. Patient is doing well this morning. No chest pain, pressure or any other discomfort at this time. Vital signs ate stable. Discharging the patient today. Patient will continue all his home medications New medications added on this admission: Atorvastatin 40 mg p.o. at bedtime Follow-up PCP 3 to 5 days [employer] 2 to 4 weeks Vital Signs/Physical Exam: Temp Pulse Resp BP Pulse Ox 97.3 F 41 L 18 125/79 98 02/12/23 04:00 02/12/23 04:00 02/12/23 04:00 02/12/23 04:00 02/12/23 04:00 Laboratory Data at Discharge: WBC 6.30 thou/uL (4.3-10.9) 02/12/23 06:16 Hgb 15.3 g/dL (13.6-17.9) D 02/12/23 06:16 Hct 44.0 % (39.6-49.0) 02/12/23 06:16 Plt Count 161 thou/uL (152-406) 02/12/23 06:16 PT 10.8 SECONDS (9.5-12.5) 02/11/23 04:30 INR 0.98 02/11/23 04:30 Sodium 138 mEq/L (136-145) 02/12/23 06:16 Potassium 4.0 mEq/L (3.5-5.1) 02/12/23 06:16 BUN 7 mg/dL (7-18) 02/12/23 06:16 Creatinine 0.86 mg/dL (0.70-1.30) 02/12/23 06:16 Glucose 100 mg/dL (74-106) 02/12/23 06:16 Triglycerides 281 mg/dL (<150) H 02/11/23 07:57 Cholesterol 147 mg/dL (<200) 02/11/23 07:57 HDL Cholesterol 46 mg/dL (40-60) 02/11/23 07:57 Cholesterol/HDL Ratio 3.20 02/11/23 07:57 Home Medications: Gabapentin 1 tab PO BID 04/23/16 Hydrocodone 10/APAP 325 [Etlan 325*] 1 tab PO QIDP PRN 04/23/16 Budesonide/Glycopyr/Formoterol [Breztri Aerosphere Inhaler] 1 puff IH BIDP PRN 02/11/23 Amlodipine [Norvasc*] 10 mg PO DAILY tab 02/12/23 Atorvastatin Calcium [Lipitor] 40 mg PO BEDTIME #30 tab 02/12/23 Citalopram [Celexa*] 40 mg PO DAILY 02/12/23 Nitroglycerin [Nitrostat*] 0.4 mg SL UD PRN #30 tab 02/12/23 Pantoprazole [Protonix Tab*] 40 mg PO ACB tab 02/12/23 New Medications: Atorvastatin Calcium [Lipitor] 40 mg PO BEDTIME #30 tab Nitroglycerin [Nitrostat*] 0.4 mg SL UD PRN #30 tab PRN Reason: Chest pain Followup: Deirdre Ryder PA [Primary Care Provider] -
[2023-02-12] MEDS ORDERED: PANTOPRAZOLE 40MG TABLET PO SCH (07:30)
[2023-02-12] MEDS: lisinopriL 10 MG TAB PO SCH (09:00)
[2023-02-12] MEDS ORDERED: CITALOPRAM 10 MG TABLET PO SCH (09:00)
[2023-02-12] MEDS ORDERED: AMLODIPINE 10 MG TAB PO SCH (09:00)
[2023-02-12] MEDS ORDERED: ASPIRIN EC 81 MG TAB PO SCH (09:00)
[2023-02-12] MEDS: ENOXAPARIN 40 MG/0.4 ML SQ SCH (09:00)
[2023-02-12] MEDS: GABAPENTIN 300 MG CAP PO SCH (09:36)
[2023-02-12 09:40] VITALS: BP 119/78
[2023-02-12 11:02] VITALS: TEMP 96.9
--- NOTE | 2023-02-14 09:42 | ECHO ---
HEIGHT: 6 ft 5 in WEIGHT: 219 lb 15.989 oz DATE OF STUDY: 02/11/[address]: Jag Medina NP 2-DIMENSIONAL: YES M.MODE: YES DOPPLER: YES COLOR FLOW: YES TDS: NO PORTABLE: YES DEFINITY: NO BUBBLE STUDY: NO DIAGNOSIS: CHEST PAIN CARDIAC HISTORY: CATHERIZATION: SURGERY: PROSTHETIC VALVE: PACEMAKER: MEASUREMENTS (cm) DIASTOLIC (NORMALS) SYSTOLIC (NORMALS) IVSd 1.0 (0.6-1.2) LA Diam 3.4 (1.9-4.0) LVEF 63% LVIDd 4.8 (3.5-5.7) LVIDs 3.1 (2.0-3.5) %FS 34% LVPWd 1.0 (0.6-1.2) Ao Diam 3.3 (2.0-3.7) 2 DIMENSIONAL ASSESSMENT: RIGHT ATRIUM: NORMAL LEFT ATRIUM: NORMAL RIGHT VENTRICLE: NORMAL LEFT VENTRICLE: NORMAL TRICUSPID VALVE: NORMAL MITRAL VALVE: NORMAL PULMONIC VALVE: NORMAL AORTIC VALVE: NORMAL PERICARDIAL EFFUSION: NONE AORTIC ROOT: NORMAL LEFT VENTRICULAR WALL MOTION: NORMAL DOPPLER/COLOR FLOW: NORMAL COMMENTS: 1. NORMAL LEFT VENTRICULAR EJECTION FRACTION 60-65%. 2. NORMAL WALL MOTION. 3. NORMAL DIASTOLIC FUNCTION. TECHNOLOGIST: Higinio CHOUDHARY
== END 2023-02-12 11:01 | disposition home or self-care (01) ==
LOC: ER 04:16 → INTOOBSV 06:52 → ERHOLD 06:52 → 4TH 11:38
PROVIDERS: ADMIT Hospitalist; ATTEND Hospitalist
DX: R07.9 Chest pain, unspecified (principal); J44.9 Chronic obstructive pulmonary disease, unspecified; G62.9 Polyneuropathy, unspecified; F17.210 Nicotine dependence, cigarettes, uncomplicated; I10 Essential (primary) hypertension; F10.90 Alcohol use, unspecified, uncomplicated; E78.5 Hyperlipidemia, unspecified
CPT/HCPCS: 93005; 93306; 85025 ×2; 80048 ×2; 36415 ×2; 85610; 80061; 84484 ×5; 83880; 71275; 71045; 96375; 96374; 99285; Q9967; J1650; J2405; J7030 ×2; G0378 ×4

== ENCOUNTER → 2023-04-07 | Emergency (ER) | payer OTHER ==
[~2023-04-07] MED LIST: CEPHALEXIN 500 MG CAP PO ONE; KETOROLAC 30 MG/ML INJ ONE; MORPHINE 4 MG/ML SYR ONE; NA CHLORIDE 0.9% 1,000 ML ONE; ONDANSETRON 4 MG/2 ML VIAL ONE
[2023-04-07 14:00] LABS: Specific Gravity 1.013 (1.005-1.030); Urine Bacteria None Seen /HPF (<20); Urine Bilirubin NEGATIVE (Negative); Urine Blood Trace (Negative); Urine Clarity Clear (Clear); Urine Color Light-Yellow (Yellow); Urine Glucose NEGATIVE (Negative); Urine Mucus Slight /HPF (None Seen); Urine Protein NEGATIVE (Negative); Urine RBC <5 /HPF (None Seen); Urine Urobilinogen Normal (Normal); Urine pH 6.5 (5.0-7.0)
--- NOTE | 2023-04-07 14:47 | RAD REPORT ---
EXAM DESCRIPTION: CT - Abdomen Pelvis Wo Contrast - 04/07/2023 1:43 pm CLINICAL HISTORY: FLANK PAIN COMPARISON: Abdomen W Contrast dated 04/26/2016 TECHNIQUE: Thin cut axial CT imaging of the abdomen and pelvis was performed without IV contrast. Mu ltiplanar reformats were generated and reviewed. All CT scans are performed using dose optimization technique as appropriate and may include automated exposure control or mA/KV adjustment according to patient size. FINDINGS: No suspicious findings in the lung bases. The liver, spleen, adrenal glands, and pancreas show no suspicious findings. Gallbladder and biliary tree are also without suspicious finding. Symmetric renal contour, without suspicious parenchymal findings within limits of noncontrast techniq ue. No evidence of radiopaque calculi or hydroureteronephrosis. No dilated bowel loops or bowel wall thickening. No free air, free fluid or inflammatory stranding. N o hernia, mass or bulky lymphadenopathy. Urinary bladder is suboptimally distended which limits evaluation, however bladder wall appears diffu sely thickened. No suspicious bony findings. IMPRESSION: Diffusely thickened urinary bladder wall, which could relate to underdistention, however possibility of cystitis cannot be entirely excluded. Please correlate clinically. No other acute intra-abdominal process.
[2023-04-07 15:10] LABS: Absolute Lymphocytes (CBC) 2.5 K/uL (0.7-4.9); Hematocrit 47.4 % (39.6-49.0); Lymphocytes % 33.6 % (15.3-44.8); MCV 101.9 fL (80-100); MPV 7.4 fL (7.6-11.3); Platelets 179 thou/uL (152-406); RBC Red Blood Cell Count 4.66 M/uL (4.33-5.43)
[2023-04-07 15:30] LABS: Albumin 3.7 g/dL (3.4-5.0); Bilirubin Total 0.5 mg/dL (0.2-1.0); Potassium 4.3 mEq/L (3.5-5.1); Protein, Total 7.5 g/dL (6.4-8.2)
--- NOTE | 2023-04-07 15:51 | EDPHYS ---
Physician Documentation [facility] Name: Carson Slaughter Age: 52 yrs Sex: Male : 1970 Arrival Date: 04/07/2023 Time: 12:57 Bed 11 Private MD: ED Physician Kennedy Kaur HPI: 04/07 13:30 This 52 yrs old Male presents to ER via Ambulatory with complaints of Flank ec2 Pain. 13:30 Patient arrives today for evaluation of left-sided flank pain. Patient reports the pain ec2 been ongoing for 2 weeks, worsening over the past 2 days, states it is intermittent without specific alleviating or exacerbating factors. States that he did actually note that position made the pain change. Reports no nausea or vomiting, no blood in the urine, does report radiating pain into the groin. Denies any pathology. . Historical: - Allergies: 13:01 No Known Allergies; ll1 - PMHx: 13:01 neuropathy; Hypercholesterolemia; ll1 13:21 Myocardial infarction; ll1 - Immunization history:: Adult Immunizations up to date. - Social history:: Smoking status: Patient reports the use of cigarette tobacco products, smokes two packs cigarettes per day. ROS: 13:30 Constitutional: as per hpi ec2 Exam: 13:30 Constitutional: GEN: NAD Head: atraumatic Eyes: EOMI Ears: External ears are ec2 normal. CV: regular rate LUNGS: no respiratory distress ABD: non-distended, soft, nontender, no guarding, not rigid, TTP to the left flank. SKIN: no evidence of rashes MSK: no evidence of trauma NEURO: moves all extremities equally Vital Signs: 13:21 BP 148 / 110; Pulse 55; Resp 17; Temp 98.1; Pulse Ox 96% ; Pain 9/10; ll1 16:13 BP 145 / 88; Pulse 58; Resp 16; Pulse Ox 100% on R/A; me1 13:21 Pain Scale: Adult ll1 MDM: 13:29 Patient medically screened. ec2 13:30 Data reviewed: vital signs. ED course: Patient arrives today for evaluation of left ec2 flank pain. Examination remarkable for abdominal findings as noted above. Will obtain lab work, CT imaging, treat the patient's symptoms. Currently considering processes such as UTI, pyelonephritis, kidney stone, diverticulitis.. 14:55 ED course: Urine with trace blood present. CT imaging shows likely cystitis. Given the ec2 patient is having symptoms, will treat for UTI. . 15:28 ED course: CBC is reassuring.. ec2 15:36 ED course: CMP is reassuring. Lipase within normal ranges. . ec2 04/07 13:28 Order name: CBC with Diff; Complete Time: 15:27 ec2 04/07 13:28 Order name: CMP; Complete Time: 15:36 ec2 04/07 13:28 Order name: Lipase; Complete Time: 15:36 ec2 04/07 13:41 Order name: Urinalysis w/ reflexes; Complete Time: 14:55 ap3 04/07 13:28 Order name: CT Abd/Pelvis - Without Contrast; Complete Time: 14:55 ec2 04/07 13:28 Order name: IV Saline Lock; Complete Time: 15:07 ec2 04/07 13:28 Order name: Labs collected and sent; Complete Time: 15:07 ec2 Administered Medications: 15:45 Drug: NS 0.9% IV 1000 ml IV at 1 bolus Per protocol; 1000 mL bolus Route: IV; Rate: 1 me1 bolus; Site: left antecubital; 16:39 Follow up: IV Status: Completed infusion me1 15:45 Drug: TORadol - Ketorolac IVP 15 mg IVP once Route: IVP; Site: left antecubital; me1 16:12 Follow up: Response: No adverse reaction me1 15:45 Drug: Ondansetron IVP 4 mg IVP once; over 2 minutes Route: IVP; Site: left antecubital; me1 16:12 Follow up: Response: No adverse reaction me1 15:45 Drug: morphine IVP or IV 4 mg IVP once over 4 mins Route: IVP; Infused Over: 4 mins; me1 Site: left antecubital; 16:13 Follow up: Response: No adverse reaction; Pain is decreased me1 16:12 Drug: Cephalexin PO 500 mg PO once Route: PO; me1 16:39 Follow up: Response: No adverse reaction me1 Disposition Summary: 04/07/23 15:50 Discharge Ordered Notes: Location: Home ec2 Condition: Stable ec2 Diagnosis - Acute cystitis ec2 Followup: ec2 - With: Private Physician - When: - Reason: Recheck today's complaints Discharge Instructions: - Discharge Summary Sheet ec2 - Urinary Tract Infection, Adult, [id number] ec2 Forms: - Medication Reconciliation Form ec2 - Thank You Letter ec2 - Antibiotic Education ec2 - Prescription Opioid Use ec2 - Patient Portal Instructions ec2 - Leadership Thank You Letter ec2 Prescriptions: - Cephalexin 500 mg Oral capsule - take 1 capsule ORAL route every 6 hours for 7 days; 28 capsule; Refills: 0, ec2 Product Selection Permitted Signatures: Dispatcher [employer] Ismael Coe RN RN ll1 Marissa Dinero RN RN me1 Kennedy Kaur MD MD ec2
--- NOTE | 2023-04-07 15:51 | ER ---
Nurse's Notes [facility] Name: Carson Slaughter Age: 52 yrs Sex: Male : 1970 Arrival Date: 04/07/2023 Time: 12:57 Bed 11 Private MD: Diagnosis: Acute cystitis Presentation: 04/07 13:18 Ebola Screen: Patient denies travel to an Ebola-affected area in the 21 days before ll1 illness onset. Initial Sepsis Screen: Does the patient meet any 2 criteria? No. Patient's initial sepsis screen is negative. Does the patient have a suspected source of infection? Yes: Dysuria/Frequency/Urgency/UTI. Risk Assessment: Do you want to hurt yourself or someone else? Patient reports no desire to harm self or others. 13:18 Method Of Arrival: Ambulatory ll1 13:18 Acuity: STACY 3 ll1 13:21 Chief complaint: Patient states: L flank pain for 2 weeks, severe for 2 days. No fever ll1 or urinary symptoms. Coronavirus screen: Client denies travel out of the [place] in the last 14 days. At this time, the client does not indicate any symptoms associated with coronavirus-19. Onset of symptoms was March 24, 2023. Triage Assessment: 13:23 General: Appears uncomfortable, Behavior is calm, cooperative, appropriate for age. ll1 Pain: Complains of pain in L flank Pain currently is 9 out of 10 on a pain scale. Quality of pain is described as aching. : Reports pain in left flank(s). Musculoskeletal: Circulation, motion, and sensation intact. Capillary refill < 3 seconds. Historical: - Allergies: 13:01 No Known Allergies; ll1 - PMHx: 13:01 neuropathy; Hypercholesterolemia; ll1 13:21 Myocardial infarction; ll1 - Immunization history:: Adult Immunizations up to date. - Social history:: Smoking status: Patient reports the use of cigarette tobacco products, smokes two packs cigarettes per day. Screenin:35 [facility] ED Fall Risk Assessment (Adult) History of falling in the last 3 months, me1 including since admission No falls in past 3 months (0 pts) Confusion or Disorientation No (0 pts) Intoxicated or Sedated No (0 pts) Impaired Gait No (0 pts) Mobility Assist Device Used No (0 pt) Altered Elimination No (0 pt) Score/Fall Risk Level 0 - 2 = Low Risk Maintained a safe environment, Provided non-skid footwear, Hourly rounding (assess needs \T\ fall precautionary measures) done. Abuse screen: Denies threats or abuse. Nutritional screening: No deficits noted. Tuberculosis screening: No symptoms or risk factors identified. Assessment: 16:35 General: Appears uncomfortable, well groomed, well developed, well nourished, Behavior me1 is calm, cooperative, appropriate for age, Reports L flank pain for 2 weeks, severe for 2 days. No fever or urinary symptoms. Pain: Complains of pain in left flank Pain radiates to back Pain currently is 8 out of 10 on a pain scale. Quality of pain is described as sharp, Pain began suddenly, Is continuous. Neuro: Level of Consciousness is awake, alert, obeys commands, Oriented to person, place, time, situation, Appropriate for age. Cardiovascular: Capillary refill < 3 seconds Patient's skin is warm and dry. Respiratory: Airway is patent Respiratory effort is even, unlabored, Respiratory pattern is regular, symmetrical. GI: Abdomen is round non-distended. : Reports pain in left flank(s), in lower back. Vital Signs: 13:21 BP 148 / 110; Pulse 55; Resp 17; Temp 98.1; Pulse Ox 96% ; Pain 9/10; ll1 16:13 BP 145 / 88; Pulse 58; Resp 16; Pulse Ox 100% on R/A; me1 13:21 Pain Scale: Adult ll1 ED Course: 12:59 Patient arrived in ED. mr 13:00 Kennedy Kaur MD is Attending Physician. ec2 13:01 Arm band placed on. ll1 13:19 Triage completed. ll1 13:45 CT Abd/Pelvis - Without Contrast In Process Unspecified. EDMS 15:07 Initial lab(s) drawn, by me, sent to lab. Inserted saline lock: 22 gauge in left cm10 antecubital area, using aseptic technique. Blood collected. 15:24 Marissa Dinero, RN is Primary Nurse. me1 16:35 Allergy band placed. Call light in reach. Side rails up X2. Adult w/ patient. Provided me1 Education on: POC. Verbalized understanding. . 16:35 No provider procedures requiring assistance completed. me1 16:38 IV discontinued, intact, bleeding controlled, No redness/swelling at site. Pressure me1 dressing applied. Administered Medications: 15:45 Drug: NS 0.9% IV 1000 ml IV at 1 bolus Per protocol; 1000 mL bolus Route: IV; Rate: 1 me1 bolus; Site: left antecubital; 16:39 Follow up: IV Status: Completed infusion me1 15:45 Drug: TORadol - Ketorolac IVP 15 mg IVP once Route: IVP; Site: left antecubital; me1 16:12 Follow up: Response: No adverse reaction me1 15:45 Drug: Ondansetron IVP 4 mg IVP once; over 2 minutes Route: IVP; Site: left antecubital; me1 16:12 Follow up: Response: No adverse reaction me1 15:45 Drug: morphine IVP or IV 4 mg IVP once over 4 mins Route: IVP; Infused Over: 4 mins; me1 Site: left antecubital; 16:13 Follow up: Response: No adverse reaction; Pain is decreased me1 16:12 Drug: Cephalexin PO 500 mg PO once Route: PO; me1 16:39 Follow up: Response: No adverse reaction me1 Medication: 16:35 VIS not applicable for this client. me1 Outcome: 15:50 Discharge ordered by . ec2 16:38 Discharged to home ambulatory, with significant other, me1 16:38 Condition: stable 16:38 Discharge instructions given to patient, significant other, Instructed on discharge instructions, follow up and referral plans. medication usage, Demonstrated understanding of instructions, follow-up care, medications, Prescriptions given X 1, 16:40 Patient left the ED. me1 Signatures: Dispatcher [employer] EDOR Kyung Caldwell, Reg Reg mr GainesIsmael RN RN ll1 Fanta Jameson RN RN cm10 Marissa Dinero RN RN me1 Kennedy Kaur MD MD ec2 Corrections: (The following items were deleted from the chart) 16:35 13:21 Chief complaint: Patient states: L flank pain for 2 weeks, severe for 2 days. No me1 fever or urinary symptoms ll1
[2023-04-07 20:01] VITALS: BP 145/88; TEMP 98.1; O2SAT 100
== END ==
LOC: ER 12:57
DX: N30.00 Acute cystitis without hematuria (principal); I25.2 Old myocardial infarction; F17.210 Nicotine dependence, cigarettes, uncomplicated
CPT/HCPCS: 96361; 85025; 81001; 36415; 83690; 80053; 74176; 96375; 96374; 99284; J2405; J7030

== ENCOUNTER 2025-01-11 11:32 | Emergency (ER) | payer OTHER ==
--- OUTSIDE RECORDS SUMMARY | 2025-01-11 11:34 | XMS REPORT | Continuity of Care Document ---
Author Name Unknown Address [address] [facility] [address] [place] [address] [facility] Address [address] 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 Name Role Phone DR MAGALI SMALL Attending Clinician Unavailable DR MAGALI SMALL Attending Clinician Unavailable DR MAGALI SMALL Admitting Clinician Unavailable Payers Payer Name Policy Type Policy Number Effective Date Expirati on Date Source [id number] 2019 00:00:00 Problems Condition Name Condition Details Condition Category Status Onset Date Resolution Date Last Treatment Date Treating Clinician Comments Source Neck pain Neck Pain Problem Active 2023-04 00:00: 00 [facility] Adhesive capsulitis of left shoulder Adhesive Capsulitis of Left Shoulder Problem Active 2023-04 00:00: 00 [facility] Pain of left shoulder joint Pain of Left Shoulder Joint Problem Active 2023-04 00:00: 00 [facility] FOOT PAIN FOOT PAIN Active 06/22/2012 [facility] Diagnosis Active 06-22 23:15: 00 2012-07-31 10:52:00 Aniya Meade Allergies, Adverse Reactions, Alerts Allergy Name Allergy Type Status Severity Reaction(s) Onset Date Inactive Date Treating Clinician Comments Source No Known Drug Allergie s DA Active [facility] Social History Smoking Status Start Date Stop Date Source Heavy Tobacco Smoker [facility] Medications Ordered Medication Name Filled Medication Name Start Date Stop Date Current Medication? Ordering Clinician Indication Dosage Frequency Signature (SIG) Comments Components Source Sondheimer 5/325 oral tablet 06-23 08:37: 26 Yes Layne Tristan Magdaleno 1 tab, PO, Q4-6H, PRN, 15 tab, as needed for pain, Substituti on Allowed, Nelli Meade acetaminoph en-hydrocod one 325 mg-5 mg oral tablet 06-23 08:23: 00 No Layne Magdaleno 1 tab, Route: PO, Dosing Weight 113.636, kg, ONCE, STAT, Start date: 06/23/12 2:23:00, Stop date: 06/23/12 2:23:00 Aniya Meade atorvastati n 40 mg tablet TAKE ONE (1) TABLET(S) BY MOUTH AT BEDTIME. atorvastati n 40 mg tablet TAKE ONE (1) TABLET(S) BY MOUTH AT BEDTIME. No atorvastat in 40 mg tablet TAKE ONE (1) TABLET(S) BY MOUTH AT BEDTIME. [facility] Breztri Aerosphere 160 mcg-9mcg-4. 8mcg/actuat ion HFA aerosol inhaler Breztri Aerosphere 160 mcg-9mcg-4. 8mcg/actuat ion HFA aerosol inhaler No Breztri Aerosphere 160 mcg-9mcg-4 .8mcg/actu ation HFA aerosol inhaler [facility] furosemide 20 mg tablet furosemide 20 mg tablet No furosemide 20 mg tablet [facility] gabapentin 300 mg capsule 2 capsules 3 times a day by oral route. gabapentin 300 mg capsule 2 capsules 3 times a day by oral route. No 2capsul e(s) TID gabapentin 300 mg capsule 2 capsules 3 times a day by oral route. [facility] hydrocodone 10 mg-acetamin ophen 325 mg tablet TAKE 1 TABLET BY MOUTH EVERY 6 HOURS NEEDED FOR 28 DAYS hydrocodone 10 mg-acetamin ophen 325 mg tablet TAKE 1 TABLET BY MOUTH EVERY 6 HOURS NEEDED FOR 28 DAYS No hydrocodon e 10 mg-acetami nophen 325 mg tablet TAKE 1 TABLET BY MOUTH EVERY 6 HOURS NEEDED FOR 28 DAYS [facility] ibuprofen 800 mg tablet ibuprofen 800 mg tablet No ibuprofen 800 mg tablet [facility] methocarbam ol 500 mg tablet TAKE ONE (1) TABLET(S) BY MOUTH TWICE A DAY NEEDED. methocarbam ol 500 mg tablet TAKE ONE (1) TABLET(S) BY MOUTH TWICE A DAY NEEDED. No methocarba mol 500 mg tablet TAKE ONE (1) TABLET(S) BY MOUTH TWICE A DAY NEEDED. [facility] metoclopram jc 10 mg tablet metoclopram jc 10 mg tablet No metoclopra mide 10 mg tablet [facility] Mobic 15 mg tablet Take 1 tablet every day by oral route with meal(s) for 21 days. Take 2 tab on first day, then 1 tab daily Mobic 15 mg tablet Take 1 tablet every day by oral route with meal(s) for 21 days. Take 2 tab on first day, then 1 tab daily No 1 Q1D Mobic 15 mg tablet Take 1 tablet every day by oral route with meal(s) for 21 days. Take 2 tab on first day, then 1 tab daily [facility] mupirocin 2 % topical ointment mupirocin 2 % topical ointment No mupirocin 2 % topical ointment [facility] nabumetone 750 mg tablet nabumetone 750 mg tablet No nabumetone 750 mg tablet [facility] nitroglycer in 0.[address] ONE (1) TABLET UNDER THE TOUNGE NEEDED FOR CHEST PAIN. nitroglycer in 0.[address] ONE (1) TABLET UNDER THE TOUNGE NEEDED FOR CHEST PAIN. No nitroglyce rin 0.[address] ONE (1) TABLET UNDER THE TOUNGE NEEDED FOR CHEST PAIN. [facility] oxycodone 10 mg tablet TAKE ONE (1) TABLET(S) BY MOUTH THREE TIMES A DAY NEEDED. oxycodone 10 mg tablet TAKE ONE (1) TABLET(S) BY MOUTH THREE TIMES A DAY NEEDED. No oxycodone 10 mg tablet TAKE ONE (1) TABLET(S) BY MOUTH THREE TIMES A DAY NEEDED. [facility] potassium chloride ER 10 mEq tablet,exte nded release potassium chloride ER 10 mEq tablet,exte nded release No potassium chloride ER 10 mEq tablet,ext ended release [facility] sodium,pota ssium,mag sulfates 17.5 gram-3.13 gram-1.6 gram oral soln sodium,pota ssium,mag sulfates 17.5 gram-3.13 gram-1.6 gram oral soln No sodium,pot assium,mag sulfates 17.5 gram-3.13 gram-1.6 gram oral soln [facility] tizanidine 4 mg tablet Take 1 tablet every day by oral route at bedtime for 21 days. tizanidine 4 mg tablet Take 1 tablet every day by oral route at bedtime for 21 days. No 1 Q1D tizanidine 4 mg tablet Take 1 tablet every day by oral route at bedtime for 21 days. [facility] Vital Signs Vital Name Observation Time Observation Value Comments S ource Height 2024-01-27 00:00:00 77 [in_i] [facility] BMI (Body Mass Index) 2024-01-27 00:00:00 26.1 kg/m2 [facility] Body Weight 2024-01-27 00:00:00 220 [lb_av] [facility] Height 2019-11-16 04:48:00 195.58 CM Weight 2019-11-16 04:48:00 101.6 KG Height 2019-11-14 15:52:00 195.58 CM Weight 2019-11-14 15:52:00 102.05 KG Weight 2012-06-23 06:42:00 [facility] Height 2012-06-23 06:42:00 195.58 cm [facility] Procedures Procedure Date / Time Performed Performing Clinicia n Source XR, shoulder, 2 or more view 2024-01-27 00:00:00 [facility] RADEX SPI 1 VIEW SPEC LVL 2024-01-27 00:00:00 [facility] MRI CERVICAL SPINE W/O CONTRAST 2024-01-27 00:00:00 [facility] Shoulder Surgery 2023-09-08 00:00:00 [facility] DRAINAGE RT MT-PHALANG JOINT OPEN 2019-11-16 00:00:00 [facility] Neck Surgery [facility] Closed reduction of fracture of foot <sup>1</sup> April Meade Encounters Start Date/Time End Date/Time Encounter Type Admission Type Attending Clinicians Care Facility Care Department Encounter ID Source 2024-01-27 00:00:00 2024-01-27 00:00:00 Manoj Kruger MD: [id number] [place] [address] , Ph. [phone] [facility] [place] [facility] [place] [facility] [id number] [facility] 2019-11-16 04:45:00 2019-11-16 10:37:00 Outpatient MAGALI MENDOZA [facility] [id number] [facility] 2012-06-23 00:28:00 2012-06-23 03:14:00 Emergency nullFlavo r [facility] [id number] Aniya Meade
--- NOTE | 2025-01-11 12:24 | RAD REPORT ---
EXAMINATION: CT LUMBAR SPINE WITHOUT CONTRAST CLINICAL INDICATION: Male, 54 years old. LOWER BACK PAIN TECHNIQUE: Axial CT images were obtained through the lumbar spine in soft tissue and bone windows wit hout intravenous contrast. Coronal and Sagittal reformatted images were created from the data set. One or more of the following dose reduction techniques were used: Automated exposure control, adjustm ent of the mA and/ or kV according to patient size, and/or iterative reconstruction. Unless otherwise specified, incidental findings do not require dedicated imaging follow-up. COMPARISON: No prior exam. FINDINGS: For purposes of this dictation, it is assumed that there are 5 non rib-bearing lumbar type vertebrae, and the most caudal fully segmented lumbar vertebra is labeled L5. ALIGNMENT: The lumbar spine demonstrates normal alignment without scoliosis or spondylolisthesis. BONES: No significant soft tissue abnormalities. No aggressive osseous lesions. DISCS: Posterior disc bulging noted throughout the lumbar spine, most notable at L3-4. LEVELS: Mild to moderate central canal narrowing seen, most significant at L3-4. There is probable mo derate foraminal encroachment bilaterally at this level. SOFT TISSUE: No soft tissue abnormalities. IMPRESSION: No acute lumbar spine abnormalities. Mild/moderate lumbar spondylosis most notable at L3-4. Nonemergent MRI lumbar spine follow-up suggest ed.
[2025-01-11] MEDS ORDERED: ONDANSETRON 4 MG/2 ML VIAL ONE (12:47)
[2025-01-11] MEDS ORDERED: MORPHINE 4 MG/ML SYR ONE (12:47)
[2025-01-11] MEDS ORDERED: KETOROLAC 30 MG/ML INJ ONE (12:47)
[2025-01-11] MEDS ORDERED: NA CHLORIDE 0.9% 1,000 ML ONE (12:48)
[2025-01-11] MEDS ORDERED: DIAZEPAM 5 MG TABLET ONE (12:48)
[2025-01-11 12:58] LABS: Absolute Lymphocytes (CBC) 2.1 K/uL (0.7-4.9); Hematocrit 48.3 % (39.6-49.0); Hemoglobin 16.6 g/dL (13.6-17.9); MCH 33.8 pg (27.0-35.0); MCHC 34.5 g/dL (32.0-36.0); MCV 98.1 fL (80-100); MPV 7.4 fL (7.6-11.3); Nucleated RBC Absolute Count 0.0 (0-0); Nucleated Red Blood Cells % 0.2 % (0-0); RBC Red Blood Cell Count 4.92 M/uL (4.33-5.43); White Blood Count 8.30 thou/uL (4.3-10.9)
[2025-01-11 13:17] LABS: ALT/SGPT 39.0 U/L (16-61); AST/SGOT 23.0 U/L (15-37); Albumin 4.1 g/dL (3.4-5.0); Albumin/Globulin Ratio 1.1 (1.1-1.8); Alkaline Phosphatase 45.0 U/L (45-117); Anion Gap 11.9 mEq/L (5.0-15.0); BUN Blood Urea Nitrogen 6.0 mg/dL (7-18); Globulin 3.7 g/dL (2.3-3.5); Glucose Level 94.0 mg/dL (74-106); Potassium 3.9 mEq/L (3.5-5.1)
--- NOTE | 2025-01-11 15:01 | EDPHYS ---
Physician Documentation [facility] Name: Carson Slaughter Age: 54 yrs Sex: Male : 1970 Arrival Date: 01/11/2025 Time: 11:32 Bed 9 Private MD: ED Physician Rashad Hagen HPI: 01/11 14:54 This 54 yrs old Male presents to ER via Ambulatory with complaints of Low homero Back Pain. 14:54 The patient presents with pain that is acute. The symptoms are located in the low back, homero lumbar area, right mid back and right low back. The pain radiates to the right mid back and right low back. The problem was sustained when bending over. Onset: The symptoms/episode began/occurred 3 day(s) ago. Modifying factors: The patient symptoms are alleviated by remaining still, rest, the patient symptoms are aggravated by any movement, bending. Associated signs and symptoms: The patient has no apparent associated signs or symptoms. Severity of symptoms: At their worst the symptoms were moderate, in the emergency department the symptoms are unchanged. The patient has experienced similar episodes in the past, several times. Historical: - Allergies: 11:55 No Known Allergies; db - PMHx: 11:55 Hypercholesterolemia; Myocardial infarction; neuropathy; db - Immunization history:: Adult Immunizations unknown. - Infectious Disease History:: Denies. - Social history:: Smoking status: Patient reports the use of cigarette tobacco products, smokes one pack cigarettes per day. - Family history:: not pertinent. ROS: 14:54 Constitutional: Negative for fever, chills, and weight loss, Eyes: Negative for injury, homero pain, redness, and discharge, ENT: Negative for injury, pain, and discharge, Neck: Negative for injury, pain, and swelling, Cardiovascular: Negative for chest pain, palpitations, and edema, Respiratory: Negative for shortness of breath, cough, wheezing, and pleuritic chest pain, Abdomen/GI: Negative for abdominal pain, nausea, vomiting, diarrhea, and constipation, : Negative for injury, bleeding, discharge, and swelling, MS/Extremity: Negative for injury and deformity, Skin: Negative for injury, rash, and discoloration, Neuro: Negative for headache, weakness, numbness, tingling, and seizure, Psych: Negative for depression, anxiety, suicide ideation, homicidal ideation, and hallucinations, Allergy/Immunology: Negative for hives, rash, and allergies, Endocrine: Negative for neck swelling, polydipsia, polyuria, polyphagia, and marked weight changes, Hematologic/Lymphatic: Negative for swollen nodes, abnormal bleeding, and unusual bruising, 14:54 Back: Positive for injury or acute deformity, decreased range of motion, pain at rest, pain with movement, of the lumbar area, right mid back and right low back, Exam: 14:54 Constitutional: This is a well developed, well nourished patient who is awake, alert, homero and in no acute distress. Head/Face: Normocephalic, atraumatic. Eyes: Pupils equal round and reactive to light, extra-ocular motions intact. Lids and lashes normal. Conjunctiva and sclera are non-icteric and not injected. Cornea within normal limits. Periorbital areas with no swelling, redness, or edema. ENT: Nares patent. No nasal discharge, no septal abnormalities noted. Tympanic membranes are normal and external auditory canals are clear. Oropharynx with no redness, swelling, or masses, exudates, or evidence of obstruction, uvula midline. Mucous membranes moist. Neck: Trachea midline, no thyromegaly or masses palpated, and no cervical lymphadenopathy. Supple, full range of motion without nuchal rigidity, or vertebral point tenderness. No Meningismus. Chest/axilla: Normal chest wall appearance and motion. Nontender with no deformity. No lesions are appreciated. Cardiovascular: Regular rate and rhythm with a normal S1 and S2. No gallops, murmurs, or rubs. Normal PMI, no JVD. No pulse deficits. Respiratory: Lungs have equal breath sounds bilaterally, clear to auscultation and percussion. No rales, rhonchi or wheezes noted. No increased work of breathing, no retractions or nasal flaring. Abdomen/GI: Soft, non-tender, with normal bowel sounds. No distension or tympany. No guarding or rebound. No evidence of tenderness throughout. Male : Normal genitalia with no discharge or lesions. Skin: Warm, dry with normal turgor. Normal color with no rashes, no lesions, and no evidence of cellulitis. MS/ Extremity: Pulses equal, no cyanosis. Neurovascular intact. Full, normal range of motion., bilateral aka Neuro: Awake and alert, GCS 15, oriented to person, place, time, and situation. Cranial nerves II-XII grossly intact. Motor strength 5/5 in all extremities. Sensory grossly intact. Cerebellar exam normal. Normal gait. Psych: Awake, alert, with orientation to person, place and time. Behavior, mood, and affect are within normal limits. 14:54 Back: pain, that is moderate, of the lumbar area, right mid back and right low back, ROM is painful, with flexion, with extension, normal spinal alignment noted, CVA tenderness, is absent, vertebral tenderness, is not appreciated, muscle spasm, is appreciated in the lumbar area, right mid back and right low back, 14:54 Skin: no rash present. Vital Signs: 11:54 BP 129 / 91; Pulse 89; Resp 16; Temp 98.7(O); Pulse Ox 96% ; Weight 106.59 kg; Height 6 db ft. 5 in. ; Pain 10/10; 13:00 BP 139 / 87; Pulse 54; Resp 18; Pulse Ox 98% ; Pain 9/10; rg5 15:00 BP 137 / 85; Pulse 60; Resp 18; Pulse Ox 100% ; Pain 5/10; rg5 11:54 Body Mass Index 27.87 (106.59 kg, 195.58 cm) db 11:54 Pain Scale: Adult db 13:00 Pain Scale: Adult rg5 15:00 Pain Scale: Adult rg5 MDM: 12:02 Medical Screening Exam initiated homero 14:58 Differential diagnosis: arthritis, strain, fracture, sciatica, contusion, Herniated homero disc UTI. Data reviewed: vital signs, nurses notes, lab test result(s), radiologic studies, CT scan. Consideration of Admission/Observation Escalation of care including admission/observation considered. I considered the following discharge prescriptions or medication management in the emergency department Medications were administered in the Emergency Department. See MAR. Independent interpretation of the following test(s) in the Emergency Department CT Scan: My interpretation is CT LUMBAR. Test considered but Not performed: MRI: NO MRI SPINE. Historians other than the Patient: PT WELL INFORMED. Care significantly affected by the following chronic conditions: SD, HIGH CHLESTEROL. Counseling: I had a detailed discussion with the patient and/or guardian regarding the historical points, exam findings, and any diagnostic results supporting the discharge/admit diagnosis, lab results, radiology results, the need for outpatient follow up, for definitive care, a family practitioner. 01/11 12:04 Order name: CBC with Diff; Complete Time: 13:30 [facility] 01/11 12:04 Order name: CMP; Complete Time: 13:30 [facility] 01/11 12:04 Order name: UA Rfx Viktor Cult if indicated [facility] 01/11 12:04 Order name: CT Lumbar Spine Wo Con; Complete Time: 13:30 homero Administered Medications: 12:50 Drug: NS 0.9% IV 1000 ml IV at 1000 ml once; to be given as a bolus over 60 minutes rg5 Route: IV; Rate: 1000 ml; Site: right antecubital; 13:55 Follow up: IV Status: Completed infusion; IV Intake: 1000ml rg5 12:50 Drug: Ketorolac IVP 30 mg IVP once Route: IVP; Site: right antecubital; rg5 14:29 Follow up: Response: No adverse reaction; Pain is decreased rg5 12:50 Drug: morphine IVP or IV 4 mg IVP once over 4 mins Route: IVP; Infused Over: 4 mins; rg5 Site: right antecubital; 14:29 Follow up: Response: No adverse reaction; Pain is decreased rg5 12:50 Drug: Ondansetron IVP 8 mg IVP once; over 2 minutes Route: IVP; Site: right antecubital;rg5 14:29 Follow up: Response: No adverse reaction; Pain is decreased rg5 12:50 Drug: Diazepam PO 10 mg PO once Route: PO; rg5 14:29 Follow up: Response: No adverse reaction; Pain is decreased rg5 12:50 Drug: Decadron - Dexamethasone IVP 10 mg IVP once Route: IVP; Site: right antecubital; rg5 14:29 Follow up: Response: No adverse reaction; Pain is decreased rg5 Disposition Summary: 01/11/25 15:00 Discharge Ordered Notes: Location: Home homero Problem: new homero Symptoms: have improved homero Condition: Stable homero Diagnosis - Low back pain homero - Other injury of muscle, fascia and tendon of lower back homero Followup: homero - With: Private Physician - When: 2 - 3 days - Reason: Recheck today's complaints, Continuance of care, Re-evaluation by your physician Followup: homero - With: Marcos Son MD - When: 2 - 3 days - Reason: Recheck today's complaints, Re-evaluation by your physician Discharge Instructions: - Discharge Summary Sheet homero - Acute Back Pain, Adult homero - Musculoskeletal Pain homero - Chronic Back Pain, [id number] [facility] Forms: - Medication Reconciliation Form homero - Antibiotic Education homero - Prescription Opioid Use homero - Patient Portal Instructions [facility] - Leadership Thank You Letter [facility] Prescriptions: - diclofenac sodium 50 mg Oral tablet, delayed release (enteric coated) - take 1 tablet ORAL route 3 times per day; 21 tablet; Refills: 0, Product [facility] Selection Permitted - methocarbamol 750 mg Oral tablet - take 1 tablet ORAL route every 4 hours; 36 tablet; Refills: 0, Product [facility] Selection Permitted - Tylenol-Codeine #3 300mg-30mg Oral tablet - take 2 tablets ORAL route every 6 hours As needed; 20 tablet; Refills: 0, [facility] Product Selection Permitted - Dexamethasone 4mg Oral tablet - take 1 tablet ORAL route daily for 3 days; 3 tablet; Refills: 0, Product [facility] Selection Permitted Signatures: Dispatcher [employer] Rashad Alas MD MD cha Benton, Danielle, RN RN Chris Rasmussen RN RN rg5
--- NOTE | 2025-01-11 15:01 | ER ---
Nurse[facility] Notes [facility] Name: Carson Slaughter Age: 54 yrs Sex: Male : 1970 Arrival Date: 01/11/2025 Time: 11:32 Bed 9 Private MD: Diagnosis: Low back pain;Other injury of muscle, fascia and tendon of lower back Presentation: 01/11 11:54 Chief complaint: Patient states: LOW BACK PAIN ON RIGHT STATES SQUATTED DOWN TO PICK db SOMETHING UP AND FELT SOMETHING POP. UNABLE TO SIT DOWN DUE TO THE PAIN. Coronavirus screen: Client denies travel out of the [place] in the last 14 days. At this time, the client does not indicate any symptoms associated with coronavirus-19. Ebola Screen: Patient negative for fever greater than or equal to 101.5 degrees Fahrenheit, and additional compatible Ebola Virus Disease symptoms Patient denies exposure to infectious person. Patient denies travel to an Ebola-affected area in the 21 days before illness onset. No symptoms or risks identified at this time. Initial Sepsis Screen: Does the patient meet any 2 criteria? No. Patient's initial sepsis screen is negative. Does the patient have a suspected source of infection? No. Patient's initial sepsis screen is negative. Risk Assessment: Do you want to hurt yourself or someone else? Patient reports no desire to harm self or others. Onset of symptoms was January 11, 2025. 11:54 Method Of Arrival: Ambulatory db 11:54 Acuity: STACY 3 db Triage Assessment: 11:55 General: Appears in no apparent distress. uncomfortable, Behavior is calm, cooperative. db Pain: Complains of pain in right low back. Neuro: Level of Consciousness is awake, alert, obeys commands, Oriented to person, place, time, situation. Respiratory: Airway is patent Respiratory effort is even, unlabored, Respiratory pattern is regular, symmetrical. Historical: - Allergies: 11:55 No Known Allergies; db - PMHx: 11:55 Hypercholesterolemia; Myocardial infarction; neuropathy; db - Immunization history:: Adult Immunizations unknown. - Infectious Disease History:: Denies. - Social history:: Smoking status: Patient reports the use of cigarette tobacco products, smokes one pack cigarettes per day. - Family history:: not pertinent. Screenin:00 [facility] ED Fall Risk Assessment (Adult) History of falling in the last 3 months, rg5 including since admission No falls in past 3 months (0 pts) Confusion or Disorientation No (0 pts) Intoxicated or Sedated No (0 pts) Impaired Gait No (0 pts) Mobility Assist Device Used No (0 pt) Altered Elimination No (0 pt) Score/Fall Risk Level 0 - 2 = Low Risk Oriented to surroundings, Maintained a safe environment. Abuse screen: Denies threats or abuse. Nutritional screening: No deficits noted. Tuberculosis screening: No symptoms or risk factors identified. Assessment: 13:00 General: Appears uncomfortable, Behavior is calm, cooperative, appropriate for age. rg5 Pain: Complains of pain in right low back Quality of pain is described as aching. Neuro: Level of Consciousness is awake, alert, obeys commands, Oriented to person, place, time, situation. Cardiovascular: Denies chest pain, Patient's skin is warm and dry. Respiratory: Airway is patent Trachea midline Respiratory effort is even, unlabored. GI: Abdomen is round non-distended. : No signs and/or symptoms were reported regarding the genitourinary system. EENT: No signs and/or symptoms were reported regarding the EENT system. Derm: Skin is intact, Skin is dry, Skin is normal. Musculoskeletal: Circulation, motion, and sensation intact. Range of motion: intact in all extremities. 14:30 Reassessment: Patient and/or family updated on plan of care and expected duration. Pain rg5 level reassessed. Patient is alert, oriented x 3, equal unlabored respirations, skin warm/dry/pink. Patient states symptoms have improved. Vital Signs: 11:54 BP 129 / 91; Pulse 89; Resp 16; Temp 98.7(O); Pulse Ox 96% ; Weight 106.59 kg; Height 6 db ft. 5 in. ; Pain 10/10; 13:00 BP 139 / 87; Pulse 54; Resp 18; Pulse Ox 98% ; Pain 9/10; rg5 15:00 BP 137 / 85; Pulse 60; Resp 18; Pulse Ox 100% ; Pain 5/10; rg5 11:54 Body Mass Index 27.87 (106.59 kg, 195.58 cm) db 11:54 Pain Scale: Adult db 13:00 Pain Scale: Adult rg5 15:00 Pain Scale: Adult rg5 ED Course: 11:35 Patient arrived in ED. al6 11:55 Triage completed. db 11:55 Arm band placed on left wrist. db 12:02 Rashad Hagen MD is Attending Physician. homero 12:14 CT Lumbar Spine Wo Con In Process Unspecified. EDMS 12:31 Chris Vogel, MATHIEU is Primary Nurse. rg5 13:00 Patient has correct armband on for positive identification. Bed in low position. Call rg5 light in reach. Side rails up X 1. Door closed. Noise minimized. 13:00 No provider procedures requiring assistance completed. Inserted saline lock: 20 gauge rg5 in right antecubital area, using aseptic technique. Blood collected. Flushed with 10 mL NS. 15:00 Marcos Son MD is Referral Physician. homero 15:29 IV discontinued, bleeding controlled, No redness/swelling at site. Pressure dressing rg5 applied. Administered Medications: 12:50 Drug: NS 0.9% IV 1000 ml IV at 1000 ml once; to be given as a bolus over 60 minutes rg5 Route: IV; Rate: 1000 ml; Site: right antecubital; 13:55 Follow up: IV Status: Completed infusion; IV Intake: 1000ml rg5 12:50 Drug: Ketorolac IVP 30 mg IVP once Route: IVP; Site: right antecubital; rg5 14:29 Follow up: Response: No adverse reaction; Pain is decreased rg5 12:50 Drug: morphine IVP or IV 4 mg IVP once over 4 mins Route: IVP; Infused Over: 4 mins; rg5 Site: right antecubital; 14:29 Follow up: Response: No adverse reaction; Pain is decreased rg5 12:50 Drug: Ondansetron IVP 8 mg IVP once; over 2 minutes Route: IVP; Site: right antecubital;rg5 14:29 Follow up: Response: No adverse reaction; Pain is decreased rg5 12:50 Drug: Diazepam PO 10 mg PO once Route: PO; rg5 14:29 Follow up: Response: No adverse reaction; Pain is decreased rg5 12:50 Drug: Decadron - Dexamethasone IVP 10 mg IVP once Route: IVP; Site: right antecubital; rg5 14:29 Follow up: Response: No adverse reaction; Pain is decreased rg5 Medication: 13:00 VIS not applicable for this client. rg5 Intake: 13:55 IV: 1000ml; Total: 1000ml. rg5 Outcome: 15:00 Discharge ordered by . homero 15:28 Discharged to home ambulatory, rg5 15:28 Condition: stable 15:28 Discharge instructions given to patient, Instructed on discharge instructions, follow up and referral plans. Demonstrated understanding of instructions, follow-up care, medications, Prescriptions given X 4, 15:30 Patient left the ED. rg5 Signatures: Dispatcher [employer] EDNE Rashad Hagen MD MD cha Benton, Danielle, RN RN Chris Rasmussen RN RN rg5 Ana Paula Solis
[2025-01-11 15:11] LABS: Urine Microscopic Reflex YN NO UMIC
[2025-01-11 15:38] VITALS: TEMP 98.7
[2025-01-11 15:42] VITALS: BP 137/85; O2SAT 100
== END 2025-01-11 15:30 | disposition home or self-care (01) ==
LOC: ER 11:32
DX: S39.092A Other injury of muscle, fascia and tendon of lower back, initial encounter (principal); F17.210 Nicotine dependence, cigarettes, uncomplicated
CPT/HCPCS: 96361; 85025; 36415; 81003; 80053; 72131; 96375; 96374; 99284; J1100; J2405; J7030

== ENCOUNTER 2025-01-14 08:40 | Day surgery (SDC) | payer OTHER ==
[2025-01-14] MEDS: Ringers Lactate 1,000 ML IV ONE (09:15)
[2025-01-14] MEDS ORDERED: FENTANYL CITR 100 MCG/2 ML ONE ×2 (10:16→11:36)
[2025-01-14] MEDS ORDERED: ROCURONIUM 50 MG/5 ML VIAL IV ONE (10:16)
[2025-01-14] MEDS ORDERED: MIDAZOLAM HCL 2 MG/2 ML INJ ONE (10:16)
[2025-01-14] MEDS ORDERED: LIDOCAINE 2% MPF 5 ML VIAL ONE (10:16)
[2025-01-14] MEDS ORDERED: ONDANSETRON 4 MG/2 ML VIAL ONE (10:16)
[2025-01-14] MEDS ORDERED: SUGAMMADEX SODIUM 200 MG/2 ML VIAL IV ONE (10:26)
[2025-01-14] MEDS: CEFAZOLIN SODIUM 1 GM/VIAL ONE (11:05)
[2025-01-14] MEDS ORDERED: GLYCOPYRROLATE 0.2 MG/ML SYR ONE (11:11)
[2025-01-14] MEDS ORDERED: KETOROLAC 30 MG/ML INJ ONE (11:46)
[2025-01-14] MEDS ORDERED: Mastisol Adhesive Liq ONE (11:48)
--- NOTE | 2025-01-14 11:50 | P.BOP ---
Preoperative diagnosis: tender incarcerated left inguinal hernia Postoperative diagnosis: same Primary procedure: Laparoscopic repair of tender incarcerated left inguinal hernia with mesh Estimated blood loss: <10cc Specimen: none Findings: LIH Anesthesia: General Complications: None Implants: 3D mesh, absorbable tack Transferred to: Recovery Room Condition: Good
[2025-01-14] MEDS: CODEINE 30MG/APAP 300MG TAB ONE (13:16)
[2025-01-14] MEDS: TAMSULOSIN 0.4 MG SR CAP ONE (13:17)
[2025-01-14 14:12] VITALS: BP 137/70; TEMP 97.7; O2SAT 97
--- NOTE | 2025-01-15 22:55 | OP ---
Date of Procedure: 01/14/2025 Surgeon: Joshua Jameson MD Preoperative Diagnosis: Tender incarcerated left inguinal hernia. Postoperative Diagnosis: Tender incarcerated left inguinal hernia. Procedure: Laparoscopic repair of tender incarcerated left inguinal hernia with mesh. Estimated Blood Loss: Less than 10 cc. Specimen: None. Findings: Left inguinal hernia. Anesthesia: General plus local. Implant: 3D mesh with absorbable tack. Indications: This is a case of a 54-year-old patient comes to us with a tender left inguinal hernia. The benefits, alternatives, and risks of repair with possible mesh fully explained, which include, but not limited to infection, bleeding, damage to structures, anesthesia complication, chronic pain, chronic numbness, recurrence of NM, and even . He also understands this may not relieve any sym ptoms. He might need more than one surgical intervention. He also understands we may use mesh in at region, so pros and cons of mesh placement were discussed with the patient. All the questions ans wered to his satisfaction. He signed a consent. Description Of Procedure: The patient was brought to the operating room, placed in supine position. Anesthesia was induced without complication. Abdominal and inguinal region were prepped and draped in a sterile fashion. A time-out was called. Local anesthetic was applied followed by sharp incisio n of the skin in the infraumbilical region. Incision was carried down until we found the anterior re ctus sheath. Once anterior rectus sheath was opened, we retracted the muscle laterally to expose the posterior rectus sheath. The extraperitoneal space was gently developed with the help of blunt diss ection and a balloon tipped trocar was placed in the area directed to the pubic symphysis and laparos cope was placed in the area. The balloon was inflated under direct visualization to create the extra peritoneal space. The 5 mm trocar was placed in the pubic symphysis and another one skilled nursing between the first and the second one. The preperitoneal space was further developed by exposing the inferior epigastric vessels keeping them anterior. The Donal's ligament was dissected laterally to the junc tion with the iliac veins and dissection continued inferiorly to the iliopubic tract, avoiding damage to the femoral branch of the genitofemoral nerve and lateral femoral cutaneous nerve. The cord stru ctures were carefully skeletonized. The hernia sac was identified. It has some omentum on it. The omentum was reduced, seems to be viable. After that, I proceeded to introduce a 3D mesh on the area of concern. The mesh was brought in a cylinder through the trocar and secured to cover direct/indire ct spaces. The mesh was secured in place with a fixation tack lateral and superior to the iliopubic tract and inferior and medial to the Donal's ligament. After ensuring hemostasis, we proceeded then to stop the insufflation and allowed the air to escape as we were holding the mesh in place. The tr ocars were removed. Anterior rectus sheath was closed with #1 Vicryl and the skin was approximated w ith Monocryl interrupted. The patient tolerated the procedure well. Sponge counts and instrument co unts were correct. The patient was sent to Recovery in stable condition. At the end of the case, te sticles were in the scrotum. Condition: Stable. Disposition: Home. Activity: As tolerated. No heavy lifting. Followup: Follow up in my [place] 1 [place] [phone]. Keep area dry for 48 ho urs, then may shower. Keep Steri-Strip intact. Cold compresses to the left inguinal region for 24 hours. Medications were previously sho MORELOS/CHARY Voice ID: [id number] Report ID: [id number]
== END 2025-01-14 13:42 | disposition home or self-care (01) ==
LOC: OR 08:40
PROVIDERS: ATTEND Surgery
PROC: 0YU64JZ Supplement Left Inguinal Region with Synthetic Substitute, Percutaneous Endoscopic Approach (ICD-10-PCS; principal; 2025-01-14 12:15)
DX: K40.30 Unilateral inguinal hernia, with obstruction, without gangrene, not specified as recurrent (principal)
CPT/HCPCS: 49650; J2704; J2003; J2250; J3010 ×2; J1100; J2405; J7120; J0690; C1781; J1885